=== PATIENT | male | born 1940 | race Caucasian/White ===

== ENCOUNTER 2016-07-15 10:32 | Outpatient (CLI) ==
[2016-03-13 14:48] VITALS: BMI 26.4
--- NOTE | 2016-07-15 11:27 | DI ---
EXAM: Chest two views HISTORY: Cough COMPARISON: 12/26/2015 TECHNIQUE: Two views of the chest were performed FINDINGS: The lungs are clear. There is no pleural effusion or pneumothorax. The heart is normal in size. The mediastinal contour is normal, noting atherosclerosis. There are median sternotomy wi res. There is lumbar spinal fusion hardware that is incompletely imaged.. There are no acute abnor malities of the bones. There are surgical clips right upper quadrant IMPRESSION: No acute cardiopulmonary process.
== END 2016-07-15 10:33 | disposition home or self-care (01) ==
LOC: RAD 10:32
PROVIDERS: ATTEND Internal Medicine
DX: R05 Cough (principal)

== ENCOUNTER 2016-07-20 08:09 | Day surgery (SDC) ==
[2016-03-13 14:48] VITALS: BMI 26.4
[2016-07-20 08:43] VITALS: TEMP 97.4
[2016-07-20] MEDS ORDERED: DIPRIVAN 20 ML VIAL IVP ONE (10:20)
[2016-07-20 12:11] VITALS: BP 162/68
--- NOTE | 2016-07-21 09:43 | OP ---
INDICATIONS FOR PROCEDURE: 76-year-old gentleman presents for evaluation of intermittent dysphagia. He also has an iron deficiency anemia. He is scheduled for endoscopy and colonoscopy. MEDICATIONS: SEE ANESTHESIA NOTES. PROCEDURE: 1. ENDOSCOPY, SLOVAK DILATATION. 2. COLONOSCOPY. REPORT: The risks, benefits, alternatives and limitations were discussed in detail with the patient. Informed consent was obtained. After adequate sedation was achieved, the video endoscope was introduced in the posterior pharynx and esophagus under direct vision. I easily advanced down to the second portion of the duodenum. I then slowly withdrew. The duodenal mucosa appeared unremarkable as did the duodenal bulb. In the second portion of the duodenum I did identify a small AVM. The antrum and body were relatively unremarkable. The scope was retroflexed to look at the cardia and fundus which was unremarkable. The scope was anteflexed and withdrawn back through the esophagus. The GE junction had mild scarring causing mild luminal narrowing. This was consistent with his benign esophageal stricture. The esophagus was otherwise unremarkable. I advanced the scope back down the gastric lumen. I placed a guidewire and withdrew the scope. Over the guidewire, I easily advanced a 54 [place] dilator. The scopes were changed. I then digitalized his colostomy. There was no stricturing. The pediatric colonoscope was introduced into the sigmoid colostomy opening and was advanced under direct visual guidance to the ileocolonic anastomosis. The small bowel appeared unremarkable. The anastomosis appeared unremarkable in this area. I then slowly withdrew the scope in a circumferential manner examining the mucosa quite carefully. I looked on the proximal and distal side of folds and flexures as best as possible. The colonic mucosa was unremarkable its entire length other than one diverticulum in the distal left colon. No other abnormalities were noted. The prep was good. The withdrawal time was 4 minutes and 13 seconds. The patient tolerated the procedure well with stable vital signs and pulse oximetry throughout. IMPRESSION: 1. DISTAL ESOPHAGEAL STRICTURE CAUSING MILD LUMINAL NARROWING SUCCESSFULLY DILATED ABOVE. 2. SMALL DUODENAL AVM. 3. SINGLE COLONIC DIVERTICULUM OTHERWISE UNREMARKABLE COLONOSCOPY EXAM. 4. I SUSPECT AVM DISEASE AN UNDERLYING CONTRIBUTING FACTOR TO HIS IRON DEFICIENCY ANEMIA. RECOMMENDATIONS: 1. Iron supplementation. 2. Reflux precautions. 3. Future colonoscopy examinations on an as needed only basis. 4. Will see him back in the office as needed. CC: DR. LISSY SANTA
== END 2016-07-20 12:20 | disposition home or self-care (01) ==
LOC: SURG 08:09
PROVIDERS: ATTEND Internal Medicine Gastroenterology
DX: R13.19 Other dysphagia (principal); D50.9 Iron deficiency anemia, unspecified; Q27.33 Arteriovenous malformation of digestive system vessel; K22.2 Esophageal obstruction; K57.30 Diverticulosis of large intestine without perforation or abscess without bleeding; Z93.3 Colostomy status; E11.9 Type 2 diabetes mellitus without complications

== ENCOUNTER 2016-08-24 06:28 | Day surgery (SDC) ==
[2016-03-13 14:48] VITALS: BMI 26.4
[2016-08-24] MEDS ORDERED: LIDOCAINE 1% 20 ML MDV ONE (07:21)
[2016-08-24] MEDS ORDERED: LIDOCAINE 1% 20 ML MDV ID ONE (07:21)
[2016-08-24 07:32] VITALS: BP 117/65; TEMP 98.5
--- NOTE | 2016-08-24 14:47 | OP ---
INDICATIONS FOR PROCEDURE: 76-year-old gentleman presents for flex-sig examination of his rectal pouch. He has a history of iron deficiency anemia and appendiceal carcinoma. MEDICATIONS: SEE ANESTHESIA NOTES. PROCEDURE: Flex sig examination of rectal pouch. REPORT: The risks, benefits, alternatives and limitations were discussed in detail with the patient. Informed consent was obtained. After adequate sedation was achieved, a digital rectal exam revealed good tone, no masses. The colonoscope was introduced into the rectum. There is some mucus present. This was suctioned off. He had a small rectal pouch and anastomosis was at the rectosigmoid junction. It was a blind pouch. The scope was advanced to this anastomosis and slowly withdrawn. 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 No other abnormalities were noted. The patient tolerated the procedure well with stable vital signs and pulse oximetry throughout. No pictures were obtained. IMPRESSION: 1. Mild diversion colitis. RECOMMENDATIONS: 1. He is asymptomatic from diversion colitis standpoint. I recommend no further intervention at this time. 2. Will see him back in the office as needed. CC: DR. GILDARDO SANTA
== END 2016-08-24 08:27 | disposition home or self-care (01) ==
LOC: SURG 06:28
PROVIDERS: ATTEND Internal Medicine Gastroenterology
DX: Z08 Encounter for follow-up examination after completed treatment for malignant neoplasm (principal); Z85.038 Personal history of other malignant neoplasm of large intestine; K52.89 Other specified noninfective gastroenteritis and colitis; D50.9 Iron deficiency anemia, unspecified; Z98.0 Intestinal bypass and anastomosis status; E11.9 Type 2 diabetes mellitus without complications
CPT/HCPCS: 00810; G0104

== ENCOUNTER 2016-08-25 13:00 | Outpatient (RCR) ==
[2016-03-13 14:48] VITALS: BMI 26.4
--- NOTE | 2016-08-05 11:28 | RS.OPPTEV2 ---
Date of Note: 08/05/16 Visit #: 1 Date of Evaluation: 08/05/16 Payer Source: MEDICARE Surgery Performed?: No Treatment Diagnosis: Low back pain History of Condition/Mechanism of Injury:: Patient reports having two lumbar surgery procedures within a four day period. The last surgery was on 07/03/15. His surgeries are about a year old and he saw the surgeon again last wk when he was referred to PT for strengthening. All restrictions were lifted and he was told he can do anything he wants. He states he can tell his legs are weak and his balance is off a little. Prior Level of Function.....Patient was independent with: ADL's, Self Care, Caregiving, Ambulation/Mobility, Community Integration/Access *Precautions: None Medical History Medical History: Hypertension, Diabetes, Cancer Medical History Comments:: Patient just had L2-5 Laminectomy 03/10/16. Has history of previous back surgeries, the most recent in 2015. Colostomy Jun 2015, CABG 1996, Bilateral TKA: right 2011, left 2003. Surgical History: Lumbar Spine Surgical History Comments:: Pt has had his 3rd back surgery. 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 Smoking Status: Former smoker Hx Home Medications: Percocet PRN Pain Assessment - Pain Description Pain Location: Right low back, right thigh and right toes intermittently Pain Description: Sharp Pain Description: Constant but minimal Current Pain Intensity: not rated Worst Pain Intensity: 8/10 Functional Outcome Measure Oswestry LBP: 28 (56%) - G Codes & Severity Modifier G Codes & Modifier: Mobility, Moving & Walking Around: Eval - CK. Goal - CJ Source of G Code score: Oswestry LBP Scale Observation - Observation Inspection: Right lateral lean minimally. Posture: Rounded Shoulders, Decreased Lumbar Lordosis Gait - Gait Pattern General Gait Pattern Observation: Decrease Stride Lngth (R), Decrease Stride Lngth (L) Gait Comments: Patient has very rigid posture with absence of trunk rotation. General Range of Motion: Right hamstring -24 degrees. Left hamstring -30 degrees - ROM Lumbar Flexion: Hand reach to patellae Sidebending to Left: Reach to Mid-thigh Sidebending to Right: Reach to Mid-thigh - Strength Trunk Rotation: 4 Good - Left Hip Strength Left Hip Flexion: 4- Good- Left Hip Extension: 4- Good- - Right Hip Strength Right Hip Flexion: 3+ Fair+ Right Hip Extension: 4- Good- Palpation Palpation Findings: Trigger Point (Right lumbar paraspinals ) Sensation - Sensation Sensation Description: Tingling (Right toes intermittenly) Interventions - Exercise/Activities/Manual Therapy Exercises/Activities: na Manual Therapy: NA HOME EXERCISE PROGRAM: -- - Charges Total Direct Minutes: 45 Total Treatment Time: 45 Procedures billed for this date of service:: PT Eval (Medium) Assessment Assessment: Constant pain still present, decreased lumbar ROM and hamstring tightness, core and BLE weakness, minimal standing balance and gait deficits. Patient Education: Education of diagnosis, Body/Joint mechanics, Activity Modification, Education of Plan of Care Rehab Potential: Good Short Term Goals Goal #1: Pt independent and compliant with basic HEP. Goal to be met by: 08/27/16 Goal #2: Bilateral hamstring length -20 degrees bilaterally. Goal to be met by: 08/27/16 Goal #3: Bilateral hip flexion strength 4+/5. Goal to be met by: 08/27/16 Goal #4: Trunk strength good- to increase stability. Goal to be met by: 08/27/16 Jail Goals Goal #1: Pt knows HEP and understands the need to continue exercises at home. Goal to be met by: 09/17/16 Goal #2: Score on Oswestry LBP scale improved to 15. Goal to be met by: 09/17/16 Goal #3: Intermittent LBP. Goal to be met by: 09/17/16 Goal #4: Pt able to perform all ADL's and recreational activities without difficulty Goal to be met by: 09/17/16 Plan - Treatment to be Provided Procedures: Therapeutic Exercises, Therapeutic Activity, Gait Training, Neuromuscular Rehab, Manual Therapy, Patient Education Modalities: Electrical Stimulation, Class IV Laser, Cryotherapy, Hot Packs, No Modalities - Treatment Plan Frequency: 3 X week Duration: 6 weeks ORDER # VISITS AND/OR THROUGH DATE: 09/17/2016 - Treatment Code (1) Low back pain Qualifiers: Chronicity: chronic Back pain laterality: right Sciatica presence: with sciatica Sciatica laterality: sciatica of right side Qualified Description: Chronic right-sided low back pain with right-sided sciatica Qualifier Code(s): (M54.41) Lumbago with sciatica, right side, (G89.29) Other chronic pain (2) Muscle weakness (generalized) Comments: M62.81
--- NOTE | 2016-08-09 15:49 | RS.OPPTDN ---
Subjective Date of Note: 08/09/16 Visit #: 2 Date of Evaluation: 08/05/16 Payer Source: MEDICARE Treatment Diagnosis: Low back pain Current Subjective/complaints:: Patient reports quite a bit of soreness today from the weather. States he wants to be able to get out on the golf course and play golf. He has walked on the cart path a little. *Precautions: None Pain Assessment - Pain Description Pain Location: Right low back, right thigh and right toes intermittently Pain Description: Sharp Pain Description: Constant but minimal Current Pain Intensity: not rated, soreness - Heat/Cryotherapy Treatment: Hot Pack (X 10 mins prior to stretching.) Interventions - Exercise/Activities/Manual Therapy Exercises/Activities: Patient assisted with stretching to bilateral HS, SKTC, Piriformis, lower trunk rotation. Both HS are very tight, especially the left. Demonstrated how to use a towel or sheet behind the knee to perform HS stretch. Patient performed isometric trunk rotation and hip abduction. Total minutes of Exercise: X 27 mins Manual Therapy: NA HOME EXERCISE PROGRAM: -- - Objective Findings Observations,measurements,etc.: Patient ambulates with slight forward posture at the hips. - Charges Total Direct Minutes: 27 mins Total Treatment Time: 37 mins Procedures billed for this date of service:: hp, EX2 Assessment: Patient demonstrates marked tightness of the hamstrings. He demonstrates the need for general stretching of the LE's and trunk at this time and then progression of trunk and LE strengthening. Patient Education: Education of diagnosis, Body/Joint mechanics, Education of Plan of Care Short Term Goals Goal #1: Pt independent and compliant with basic HEP. Goal to be met by: 08/27/16 Goal #2: Bilateral hamstring length -20 degrees bilaterally. Goal to be met by: 08/27/16 Goal #3: Bilateral hip flexion strength 4+/5. Goal to be met by: 08/27/16 Goal #4: Trunk strength good- to increase stability. Goal to be met by: 08/27/16 Telecommunication Equipment Repairer Goals Goal #1: Pt knows HEP and understands the need to continue exercises at home. Goal to be met by: 09/17/16 Goal #2: Score on Oswestry LBP scale improved to 15. Goal to be met by: 09/17/16 Goal #3: Intermittent LBP. Goal to be met by: 09/17/16 Goal #4: Pt able to perform all ADL's and recreational activities without difficulty Goal to be met by: 09/17/16 Plan PLAN OF CARE EXPIRES ON:: 09/17/16 ORDER # VISITS AND/OR THROUGH DATE: 09/17/2016 PLAN: Progress Exercises
--- NOTE | 2016-08-11 13:58 | RS.OPPTDN ---
Subjective Date of Note: 08/11/16 Visit #: 3 Date of Evaluation: 08/05/16 Payer Source: MEDICARE Treatment Diagnosis: Low back pain Current Subjective/complaints:: Patient reports sorenes from stretches,but in a good way,referring to walking better,more upright. *Precautions: None Pain Assessment - Pain Description Pain Location: Right low back, right thigh and right toes intermittently Pain Description: Sharp, Dull, Aching Pain Description: Constant but minimal Current Pain Intensity: not rated, soreness - Heat/Cryotherapy Treatment: Hot Pack (20 mins. prior to exercises) Interventions - Exercise/Activities/Manual Therapy Exercises/Activities: Patient assisted with stretching to bilateral HS, SKTC, Piriformis, lower trunk rotation. Both HS are very tight, especially the left. Reminded patient to use a towel or sheet behind the knee to perform HS stretch. Patient performed isometric trunk rotation and hip abduction. Total minutes of Exercise: 25 Manual Therapy: NA Total minutes of Manual Therapy: 0 HOME EXERCISE PROGRAM: SKTC,isometric hip abd /add,90/90 hamstring stretches, LTR in PAIN FREE ROM - Charges Total Direct Minutes: 25 Total Treatment Time: 45 Procedures billed for this date of service:: hp,ex 2 Assessment: Patient has moderate hamstring tightness ,R greater then L ,but tolerates stretches well.He is attentive to HEP recommendations.He describes the back pain as dull today,as opposed to sharp. Patient demonstrates compliance with HEP?: Yes Short Term Goals Goal #1: Pt independent and compliant with basic HEP. Goal to be met by: 08/27/16 Progress towards Goal:: Progressing Goal #2: Bilateral hamstring length -20 degrees bilaterally. Goal to be met by: 08/27/16 Progress towards Goal:: Progressing Goal #3: Bilateral hip flexion strength 4+/5. Goal to be met by: 08/27/16 Goal #4: Trunk strength good- to increase stability. Goal to be met by: 08/27/16 [place] Resistance Goals Goal #1: Pt knows HEP and understands the need to continue exercises at home. Goal to be met by: 09/17/16 Progress towards goal: Progressing Goal #2: Score on Oswestry LBP scale improved to 15. Goal to be met by: 09/17/16 Goal #3: Intermittent LBP. Goal to be met by: 09/17/16 Goal #4: Pt able to perform all ADL's and recreational activities without difficulty Goal to be met by: 09/17/16 Plan PLAN OF CARE EXPIRES ON:: 09/17/16 ORDER # VISITS AND/OR THROUGH DATE: 09/17/2016 PLAN: Continue Plan of Care
--- NOTE | 2016-08-13 14:02 | RS.OPPTDN ---
Subjective Date of Note: 08/13/16 Visit #: 4 Date of Evaluation: 08/05/16 Payer Source: MEDICARE Treatment Diagnosis: Low back pain Current Subjective/complaints:: Patient reports increased soreness in the R hip and low back today. *Precautions: None Pain Assessment - Pain Description Pain Location: Right low back, right thigh and right toes intermittently Pain Description: Sharp, Dull, Aching Pain Description: Constant but minimal Current Pain Intensity: not rated, soreness - Heat/Cryotherapy Treatment: Hot Pack (20 mins. prior to exercises) Interventions - Exercise/Activities/Manual Therapy Exercises/Activities: 20 mins. stretching to bilateral HS, SKTC, Piriformis, lower trunk rotation. Total minutes of Exercise: 20 Manual Therapy: NA Total minutes of Manual Therapy: 0 HOME EXERCISE PROGRAM: SKTC,isometric hip abd /add,90/90 hamstring stretches, LTR in PAIN FREE ROM - Charges Total Direct Minutes: 20 Total Treatment Time: 40 Procedures billed for this date of service:: hp,ex 1 Assessment: Patient responds better today to bilateral hamstrings stretches with less pain.He tolerates the lumbar paraspinals stretch wothout pain increasing .He does have improved trunk extension with ambulation. Patient Education: Education of diagnosis, Body/Joint mechanics, Home Exercise Program, Home Safety, Activity Modification, Education of Plan of Care Patient demonstrates compliance with HEP?: Yes Short Term Goals Goal #1: Pt independent and compliant with basic HEP. Goal to be met by: 08/27/16 Progress towards Goal:: Progressing Goal #2: Bilateral hamstring length -20 degrees bilaterally. Goal to be met by: 08/27/16 Progress towards Goal:: Progressing Goal #3: Bilateral hip flexion strength 4+/5. Goal to be met by: 08/27/16 Goal #4: Trunk strength good- to increase stability. Goal to be met by: 08/27/16 Jail Goals Goal #1: Pt knows HEP and understands the need to continue exercises at home. Goal to be met by: 09/17/16 Progress towards goal: Progressing Goal #2: Score on Oswestry LBP scale improved to 15. Goal to be met by: 09/17/16 Goal #3: Intermittent LBP. Goal to be met by: 09/17/16 Progress towards goal: Progressing Goal #4: Pt able to perform all ADL's and recreational activities without difficulty Goal to be met by: 09/17/16 Plan PLAN OF CARE EXPIRES ON:: 09/17/16 ORDER # VISITS AND/OR THROUGH DATE: 09/17/2016 PLAN: Continue Plan of Care
--- NOTE | 2016-08-16 14:02 | RS.OPPTDN ---
Subjective Date of Note: 08/16/16 Visit #: 5 Date of Evaluation: 08/05/16 Payer Source: MEDICARE Treatment Diagnosis: Low back pain Current Subjective/complaints:: Patient reports increased soreness after the last couple of PT sessions,discussed focusing on strengthening,less stretching to sees if it helps decrease his pain. *Precautions: None Pain Assessment - Pain Description Pain Location: Right low back, right thigh and right toes intermittently Pain Description: Sharp, Dull, Aching Current Pain Intensity: not rated Worst Pain Intensity: 8/10 over the weekend - Heat/Cryotherapy Treatment: Hot Pack (20 mins. prior to exercises) Interventions - Exercise/Activities/Manual Therapy Exercises/Activities: 20 mins. total on leg press,08/11 @ 45 #,08/06 calf-raises @ 15 #.HEP review. Total minutes of Exercise: 20 Manual Therapy: NA Total minutes of Manual Therapy: 0 HOME EXERCISE PROGRAM: SKTC,isometric hip abd /add,90/90 hamstring stretches, LTR in PAIN FREE ROM - Charges Total Direct Minutes: 20 Total Treatment Time: 40 Procedures billed for this date of service:: hp,ex 1 Assessment: Tolerates resistive exercises well today ,no report of LBP.He understands to do all exercises in pain free ROM. Patient Education: Education of diagnosis, Body/Joint mechanics, Home Exercise Program, Home Safety, Activity Modification, Education of Plan of Care Patient demonstrates compliance with HEP?: Yes Short Term Goals Goal #1: Pt independent and compliant with basic HEP. Goal to be met by: 08/27/16 Progress towards Goal:: Progressing Goal #2: Bilateral hamstring length -20 degrees bilaterally. Goal to be met by: 08/27/16 Progress towards Goal:: Progressing Goal #3: Bilateral hip flexion strength 4+/5. Goal to be met by: 08/27/16 Progress towards Goal:: Progressing Goal #4: Trunk strength good- to increase stability. Goal to be met by: 08/27/16 Progress towards Goal:: Progressing Residential Goals Goal #1: Pt knows HEP and understands the need to continue exercises at home. Goal to be met by: 09/17/16 Progress towards goal: Progressing Goal #2: Score on Oswestry LBP scale improved to 15. Goal to be met by: 09/17/16 Goal #3: Intermittent LBP. Goal to be met by: 09/17/16 Progress towards goal: Progressing Goal #4: Pt able to perform all ADL's and recreational activities without difficulty Goal to be met by: 09/17/16 Plan PLAN OF CARE EXPIRES ON:: 09/17/16 ORDER # VISITS AND/OR THROUGH DATE: 09/17/2016 PLAN: Continue Plan of Care
--- NOTE | 2016-08-18 11:04 | RS.OPPTDN ---
Subjective Date of Note: 08/18/16 Visit #: 6 Date of Evaluation: 08/05/16 Payer Source: MEDICARE Treatment Diagnosis: Low back pain Current Subjective/complaints:: Reports increased R groin pain and low back pain today. *Precautions: None Pain Assessment - Pain Description Pain Location: Right low back, right thigh and right toes intermittently Pain Description: Sharp, Dull, Aching Current Pain Intensity: 8/10 - Heat/Cryotherapy Treatment: Hot Pack (20 mins. prior to manual therapy.) Interventions - Exercise/Activities/Manual Therapy Exercises/Activities: Withheld today. Total minutes of Exercise: 0 Manual Therapy: 30 mins. deep tissue massage to lumbar paraspinals with patient in L sidelying position.Trigger point pressure application @ L3-L4 level intermittently during session. Total minutes of Manual Therapy: 30 HOME EXERCISE PROGRAM: SKTC,isometric hip abd /add,90/90 hamstring stretches, LTR in PAIN FREE ROM - Charges Total Direct Minutes: 30 Total Treatment Time: 50 Procedures billed for this date of service:: hp,manual therapy 2 Assessment: Patient has increased tendeness today on the R aspect of L3-L4 transverse proces.He does report relief after session today.He knows to do HEP in PAIN FREE ROM as tolerated,avoid excessive trunk rotation .He exits clinic with less antalgic gait. Patient Education: Education of diagnosis, Body/Joint mechanics, Home Exercise Program, Home Safety, Activity Modification, Education of Plan of Care Patient demonstrates compliance with HEP?: Yes Short Term Goals Goal #1: Pt independent and compliant with basic HEP. Goal to be met by: 08/27/16 Progress towards Goal:: Progressing Goal #2: Bilateral hamstring length -20 degrees bilaterally. Goal to be met by: 08/27/16 Progress towards Goal:: No Change Goal #3: Bilateral hip flexion strength 4+/5. Goal to be met by: 08/27/16 Progress towards Goal:: Progressing Goal #4: Trunk strength good- to increase stability. Goal to be met by: 08/27/16 Progress towards Goal:: Progressing Sidewalk Repairer Goals Goal #1: Pt knows HEP and understands the need to continue exercises at home. Goal to be met by: 09/17/16 Progress towards goal: Progressing Goal #2: Score on Oswestry LBP scale improved to 15. Goal to be met by: 09/17/16 Goal #3: Intermittent LBP. Goal to be met by: 09/17/16 (elevated today upon arrival) Progress towards goal: Regressing Goal #4: Pt able to perform all ADL's and recreational activities without difficulty Goal to be met by: 09/17/16 Plan PLAN OF CARE EXPIRES ON:: 09/17/16 ORDER # VISITS AND/OR THROUGH DATE: 09/17/2016 PLAN: Continue Plan of Care
--- NOTE | 2016-08-20 14:15 | RS.OPPTDN ---
Subjective Date of Note: 08/20/16 Visit #: 7 Date of Evaluation: 08/05/16 Payer Source: MEDICARE Treatment Diagnosis: Low back pain Current Subjective/complaints:: Patient reports he feels poping in his back, feels ,"like somethign is loose at times".He plans to return to Dr. Goins for possible if he agrees. *Precautions: None Pain Assessment - Pain Description Pain Location: Right low back, right thigh and right toes intermittently Pain Description: Sharp, Dull, Aching Current Pain Intensity: 8/10 - Heat/Cryotherapy Treatment: Hot Pack (20 mins. to lumbar prior to manual therapy.) Interventions - Exercise/Activities/Manual Therapy Exercises/Activities: Withheld today. Total minutes of Exercise: 0 Manual Therapy: 30 mins. deep tissue massage to lumbar paraspinals with patient in L sidelying position.Trigger point pressure application @ L3-L4 level intermittently during session. Total minutes of Manual Therapy: 30 HOME EXERCISE PROGRAM: SKTC,isometric hip abd /add,90/90 hamstring stretches, LTR in PAIN FREE ROM - Charges Total Direct Minutes: 30 Total Treatment Time: 50 Procedures billed for this date of service:: hp,manual therapy Assessment: Patient is tender to palpate the transverse processes at L3 - L4 levels today.He does have less antalgic gait after PT session.He knows the HEP well,but reminded to do them in pain free ROM. Patient Education: Education of diagnosis, Body/Joint mechanics, Home Exercise Program, Home Safety, Activity Modification, Education of Plan of Care Patient demonstrates compliance with HEP?: Yes Short Term Goals Goal #1: Pt independent and compliant with basic HEP. Goal to be met by: 08/27/16 Progress towards Goal:: Progressing Goal #2: Bilateral hamstring length -20 degrees bilaterally. Goal to be met by: 08/27/16 Progress towards Goal:: No Change Goal #3: Bilateral hip flexion strength 4+/5. Goal to be met by: 08/27/16 (N/A) Goal #4: Trunk strength good- to increase stability. Goal to be met by: 08/27/16 Progress towards Goal:: Progressing Zigzag Appliquer Goals Goal #1: Pt knows HEP and understands the need to continue exercises at home. Goal to be met by: 09/17/16 Progress towards goal: Progressing Goal #2: Score on Oswestry LBP scale improved to 15. Goal to be met by: 09/17/16 Goal #3: Intermittent LBP. Goal to be met by: 09/17/16 (elevated again today upon arrival) Progress towards goal: No Change Goal #4: Pt able to perform all ADL's and recreational activities without difficulty Goal to be met by: 09/17/16 Plan PLAN OF CARE EXPIRES ON:: 09/17/16 ORDER # VISITS AND/OR THROUGH DATE: 09/17/2016 PLAN: Continue Plan of Care
--- NOTE | 2016-08-23 14:03 | RS.OPPTDN ---
Subjective Date of Note: 08/23/16 Visit #: 8 Date of Evaluation: 08/05/16 Payer Source: MEDICARE Treatment Diagnosis: Low back pain Current Subjective/complaints:: Reports relief after last session until the next day.He is hurting alot today,has antalgic gait .He plans to see Dr. Goins or the PA tomorrow for possible x-ray on his back. *Precautions: None Pain Assessment - Pain Description Pain Location: Right low back, right thigh and right toes intermittently Pain Description: Sharp, Dull, Aching Current Pain Intensity: 8/10 - Heat/Cryotherapy Treatment: Hot Pack (20 mins. to lumbar prior to manual therapy.) Interventions - Exercise/Activities/Manual Therapy Exercises/Activities: Withheld today. Total minutes of Exercise: 0 Manual Therapy: 20 mins. deep tissue massage to lumbar paraspinals with patient in L sidelying position.Ended sesion early due to patient needing to go to bathroom. HOME EXERCISE PROGRAM: SKTC,isometric hip abd /add,90/90 hamstring stretches, LTR in PAIN FREE ROM - Charges Total Direct Minutes: 20 Total Treatment Time: 40 Procedures billed for this date of service:: hp,manual 1 Assessment: Patient reports significant relief in side-lying today during the manual therapy.He continues to report feeling like there is something loose in his back,but plans to mention this at tomorrow's visit. Patient Education: Education of diagnosis, Body/Joint mechanics, Home Exercise Program, Home Safety, Activity Modification, Education of Plan of Care Patient demonstrates compliance with HEP?: Yes Short Term Goals Goal #1: Pt independent and compliant with basic HEP. Goal to be met by: 08/27/16 Progress towards Goal:: Progressing Goal #2: Bilateral hamstring length -20 degrees bilaterally. Goal to be met by: 08/27/16 Progress towards Goal:: No Change Goal #3: Bilateral hip flexion strength 4+/5. Goal to be met by: 08/27/16 (N/A) Goal #4: Trunk strength good- to increase stability. Goal to be met by: 08/27/16 Progress towards Goal:: Progressing [facility] Goals Goal #1: Pt knows HEP and understands the need to continue exercises at home. Goal to be met by: 09/17/16 Progress towards goal: Progressing Goal #2: Score on Oswestry LBP scale improved to 15. Goal to be met by: 09/17/16 Goal #3: Intermittent LBP. Goal to be met by: 09/17/16 (elevated again today upon arrival) Progress towards goal: No Change Goal #4: Pt able to perform all ADL's and recreational activities without difficulty Goal to be met by: 09/17/16 Progress towards goal: No Change Plan PLAN OF CARE EXPIRES ON:: 09/17/16 ORDER # VISITS AND/OR THROUGH DATE: 09/17/2016 PLAN: Continue Plan of Care
--- NOTE | 2016-08-25 16:11 | RS.OPPTDN ---
Subjective Date of Note: 08/25/16 Visit #: 9 Date of Evaluation: 08/05/16 Payer Source: MEDICARE Treatment Diagnosis: Low back pain Current Subjective/complaints:: Patient discussed D/C plan today due to minimal change and slow progress.He plans to return to Dr. Goins for follow-up.He continues to feel like something ,"is loose " in his back. *Precautions: None Pain Assessment - Pain Description Pain Location: Right low back, right thigh and right toes intermittently Pain Description: Sharp, Dull, Aching Current Pain Intensity: 8/10 - Heat/Cryotherapy Treatment: Hot Pack (20 mins. prior to manual therapy) Interventions - Exercise/Activities/Manual Therapy Exercises/Activities: NA Total minutes of Exercise: 0 Manual Therapy: 25 mins. deep tissue massage to lumbar paraspinals with patient in L sidelying position. Total minutes of Manual Therapy: 25 HOME EXERCISE PROGRAM: SKTC,isometric hip abd /add,90/90 hamstring stretches, LTR in PAIN FREE ROM - Charges Total Direct Minutes: 25 Total Treatment Time: 45 Procedures billed for this date of service:: hp,manual 2 Assessment: Reports temporary relief only with minimal ,slow progress in regards to the LBP.He agrees with D/C plan today.He has good understanding of HEP ,as he can tolerate. Patient Education: Education of diagnosis, Body/Joint mechanics, Home Exercise Program, Home Safety, Activity Modification, Education of Plan of Care Patient demonstrates compliance with HEP?: Yes Short Term Goals Goal #1: Pt independent and compliant with basic HEP. Goal to be met by: 08/27/16 Progress towards Goal:: Partially Met Goal #2: Bilateral hamstring length -20 degrees bilaterally. Goal to be met by: 08/27/16 Progress towards Goal:: No Change Goal #3: Bilateral hip flexion strength 4+/5. Goal to be met by: 08/27/16 (N/A due to pain) Goal #4: Trunk strength good- to increase stability. Goal to be met by: 08/27/16 Progress towards Goal:: No Change Family Caseworker Goals Goal #1: Pt knows HEP and understands the need to continue exercises at home. Goal to be met by: 09/17/16 Progress towards goal: Met Goal #2: Score on Oswestry LBP scale improved to 15. Goal to be met by: 09/17/16 (score 25) Progress towards goal: Not Met Goal #3: Intermittent LBP. Goal to be met by: 09/17/16 (elevated again today upon arrival) Progress towards goal: No Change Goal #4: Pt able to perform all ADL's and recreational activities without difficulty Goal to be met by: 09/17/16 Progress towards goal: No Change Plan PLAN OF CARE EXPIRES ON:: 09/17/16 ORDER # VISITS AND/OR THROUGH DATE: 09/17/2016 PLAN: Plan for Discharge
--- NOTE | 2016-08-27 15:55 | RS.OPPTDC ---
Date of Discharge: 08/25/16 Date of Evaluation: 08/05/16 Number of Visits: 9 Treatment Diagnosis: Low back pain Current Complaints/Gains: Patient reports minimal progress, but very slow. He would like to stop therapy until he returns to Dr. Goins. He feels he can continue his HEP without difficulty. Functional Outcome Measure Oswestry LBP: 25 - G Codes & Severity Modifier G Codes & Modifier: Mobility goal CJ. Mobility D/C CK Source of G Code score: Oswestry LBP scale Observation - Observation Posture: Forward Head, Rounded Shoulders Comments: Ambulates and stands with flexed forward guarded posture. Interventions - Exercise/Activities/Manual Therapy Exercises/Activities: NA Manual Therapy: Na HOME EXERCISE PROGRAM: SKTC,isometric hip abd /add,90/90 hamstring stretches, LTR in PAIN FREE ROM - Charges Total Direct Minutes: Na Total Treatment Time: NA Procedures billed for this date of service:: NA Assessment Assessment: Patient demonstrates difficulty tolerating stretching or progression of stability exercises. He would like to hold therapy until he returns to Dr. Goins for a follow up appointment. Short Term Goals Goal #1: Pt independent and compliant with basic HEP. Goal to be met by: 08/27/16 Progress towards Goal:: Partially Met Goal #2: Bilateral hamstring length -20 degrees bilaterally. Goal to be met by: 08/27/16 Progress towards Goal:: Not Met Goal #3: Bilateral hip flexion strength 4+/5. Goal to be met by: 08/27/16 (N/A due to pain) Progress towards Goal:: Not Met Goal #4: Trunk strength good- to increase stability. Goal to be met by: 08/27/16 Progress towards Goal:: Not Met [facility] Goals Goal #1: Pt knows HEP and understands the need to continue exercises at home. Goal to be met by: 09/17/16 Progress towards goal: Met Goal #2: Score on Oswestry LBP scale improved to 15. Goal to be met by: 09/17/16 (score 25) Progress towards goal: Not Met Goal #3: Intermittent LBP. Goal to be met by: 09/17/16 (elevated again today upon arrival) Progress towards goal: Not Met Goal #4: Pt able to perform all ADL's and recreational activities without difficulty Goal to be met by: 04/21/17 Progress towards goal: Not Met Plan Reason for Discharge:: Lack of Progress
== END 2016-08-27 ==
PROVIDERS: ATTEND Orthopaedic Surgery Orthopaedic Surgery of the Spine
DX: M54.5 Low back pain (principal)

== ENCOUNTER 2016-09-24 14:22 | Outpatient (CLI) ==
[2016-03-13 14:48] VITALS: BMI 26.4
[2016-09-24 14:49] LABS: BILIRUBIN,URINE Negative (NEGATIVE); KETONES,URINE Negative (NEGATIVE); LEUKOCYTE ESTERASE ,URINE 1+ (NEGATIVE); NITRITE,URINE Positive (NEGATIVE); PROTEIN,URINE 1+ (NEGATIVE); URINE, BLOOD Trace-intact (NEGATIVE)
[2016-09-24 14:54] LABS: ADD URINE MICROSCOPIC YES
[2016-09-24 14:58] LABS: BACTERIA,URINE 3+ (NOT PRESENT)
== END 2016-09-24 14:23 | disposition home or self-care (01) ==
LOC: LAB 14:22
PROVIDERS: ATTEND Internal Medicine
DX: N39.0 Urinary tract infection, site not specified (principal)
CPT/HCPCS: 81001; 87086; 87186

== ENCOUNTER 2016-10-07 12:43 | Outpatient (CLI) ==
[2016-03-13 14:48] VITALS: BMI 26.4
--- NOTE | 2016-10-07 13:33 | CT ---
EXAM: CT LUMBAR SPINE HISTORY: Lower back pain TECHNIQUE: CT lumbar spine without contrast. 3-mm axial sections. Coronal and sagittal reformatio ns. COMPARISON: 01/14/2016 FINDINGS: Bones appear demineralized. Again noted are extensive postop changes of the spine extending from L2 -S1. Hardware appears stable. There is a left lateral stabilization from L2 through L4. The stabi lized levels have disc spacers and there are selective laminectomy changes. No acute fracture or sp ondylolisthesis. No scoliosis. Sacroiliac joints are within normal limits. Especially the L5/S1 endplates are slightly sclerotic and also irregular, these more noticeable than on prior study. This is likely related to increasing breach of the end plate by the spacer althoug h an infectious etiology is not excluded by this exam. There is no high-grade central canal stenosi s. No paraspinal fluid collection is seen. IMPRESSION: 1. Stable hardware extending from L2-S1. There are intervening disc spacers and selective laminecto my. 2. Greater endplate irregularity at L5/S1 which is most likely related to partial breech of the end plates by the disc spacer. Less likely an infectious process. These images can be reviewed by the patient's surgeon for appropriateness. Consider patient history and physical examination. MRI is av ailable if indicated.
== END 2016-10-07 12:44 | disposition home or self-care (01) ==
LOC: RAD 12:43
PROVIDERS: ATTEND Orthopaedic Surgery Orthopaedic Surgery of the Spine
DX: M54.5 Low back pain (principal)

== ENCOUNTER 2016-10-26 11:24 | Outpatient (CLI) ==
[2016-03-13 14:48] VITALS: BMI 26.4
[2016-10-26 11:48] LABS: BILIRUBIN,URINE Negative (NEGATIVE); KETONES,URINE Negative (NEGATIVE); LEUKOCYTE ESTERASE ,URINE 3+ (NEGATIVE); NITRITE,URINE Negative (NEGATIVE); PROTEIN,URINE 1+ (NEGATIVE); URINE, BLOOD Trace-intact (NEGATIVE)
[2016-10-26 11:49] LABS: ADD URINE MICROSCOPIC YES
[2016-10-26 11:54] LABS: BACTERIA,URINE 1+ (NOT PRESENT)
== END 2016-10-26 11:25 | disposition home or self-care (01) ==
LOC: LAB 11:24
PROVIDERS: ATTEND Emergency Medicine
DX: N39.0 Urinary tract infection, site not specified (principal)
CPT/HCPCS: 81001; 87086; 87186

== ENCOUNTER 2016-11-29 11:06 | Outpatient (CLI) ==
[2016-03-13 14:48] VITALS: BMI 26.4
--- NOTE | 2016-11-29 12:09 | US ---
EXAM: Bilateral lower extremity venous Doppler History: Bilateral leg pain and swelling. Technique: Multiple sonographic images through the bilateral lower extremities were obtained. [place] r duplex Doppler was used to interrogate vascular flow. Findings: The bilateral common femoral, greater saphenous, profunda, superficial femoral, popliteal, peroneal, posterior tibial and anterior tibial veins demonstrate spontaneous flow with normal compr ession and normal augmentation. Impression: No sonographic evidence for deep venous thrombosis.
== END 2016-11-29 11:07 | disposition home or self-care (01) ==
LOC: RAD 11:06
PROVIDERS: ATTEND Internal Medicine
DX: M79.605 Pain in left leg (principal); M79.604 Pain in right leg; M79.89 Other specified soft tissue disorders

== ENCOUNTER 2016-12-08 13:01 | Outpatient (CLI) ==
[2016-03-13 14:48] VITALS: BMI 26.4
== END 2016-12-08 13:02 | disposition home or self-care (01) ==
LOC: RAD 13:01
PROVIDERS: ATTEND Orthopaedic Surgery Orthopaedic Surgery of the Spine
DX: M54.5 Low back pain (principal)

== ENCOUNTER 2017-01-08 18:43 | Outpatient (CLI) ==
[2016-03-13 14:48] VITALS: BMI 26.4
[2017-01-08 19:00] LABS: BILIRUBIN,URINE Negative (NEGATIVE); KETONES,URINE Negative (NEGATIVE); LEUKOCYTE ESTERASE ,URINE 3+ (NEGATIVE); NITRITE,URINE Negative (NEGATIVE); PROTEIN,URINE Negative (NEGATIVE); URINE, BLOOD 1+ (NEGATIVE)
[2017-01-08 19:02] LABS: ADD URINE MICROSCOPIC YES
[2017-01-08 19:05] LABS: BACTERIA,URINE 3+ (NOT PRESENT)
== END 2017-01-08 18:44 | disposition home or self-care (01) ==
LOC: LAB 18:43
PROVIDERS: ATTEND Internal Medicine
DX: R35.0 Frequency of micturition (principal)
CPT/HCPCS: 81001; 87086; 87186

== ENCOUNTER 2017-09-09 10:07 | Outpatient (CLI) | payer OTHER ==
[2017-01-26 16:45] VITALS: BMI 27.6
--- NOTE | 2017-09-09 12:41 | MRI ---
EXAM: MRI brain without and with IV contrast. DATE: 09 September 2017. HISTORY: Headaches. Unsteady gait. TECHNIQUE: Sagittal T1W pre and postcontrast, axial T2W, axial FLAIR, axial T1W pre and postcontrast , axial DWI, coronal T1W postcontrast, and coronal T2W GRE sequences of the brain were obtained using 1.2 Milli magnet. CONTRAST: Dotarem - 19 ml IV. COMPARISON: CT head 26 December 2015. FINDINGS: The lateral ventricles, third ventricle, Sylvian fissures and many cerebral sulci (especia lly frontal lobes) are enlarged due to involutional change. Some cerebellar sulci are slightly promi nent. No midline shift, mass effect or abnormal extra-axial fluid collection is apparent. No acute hemorrhage or enhancing neoplasm is identified. No abnormal contrast enhancement is identified in th e brain, meninges or dura. Small/moderate confluent rim of T2W/FLAIR hyperintensity is observed in t he white matter abutting each lateral ventricle. Small number of 2-5 mm, T2W/FLAIR bright, non-enhan cing foci are scattered in the anderson radiata and subcortical white matter bilaterally. The gutierrez - w rolanda matter differentiation is normal. Several 2-5 mm T2W/FLAIR bright, non-enhancing foci are demon strated in the felix. A 3 mm DWI bright focus in the right paramidline felix on axial image #8 and sli ghtly less intense similar focus on image #9 do not have definitive corresponding abnormalities on T2 W or FLAIR sequences. A 15 mm AP x 3.5 mm transverse x 14 mm craniocaudal T2W GRE black signal along the anterior falx cerebri corresponds with benign calcification on CT scan. No migration or diverti culation abnormality is identified. The amygdala, hippocampus, and parahippocampal gyri are similar bilaterally. The 7th/8th cranial nerve complexes, cerebellopontine angles, and visible cervical spin al cord are normal. There is no cerebellar tonsillar ectopia. The pituitary gland is normal in size and signal. Corpus callosum is normal in size and configuration. Flow voids are present in the tino or intracranial arteries and in the dural venous sinuses. No aneurysm, AVM or dural venous sinus thr ombosis is apparent. Appearance of the lens of each eye suggests prior cataract surgery. No other o rbit abnormality is identified. Right mastoid air cells are unremarkable. Small number of inferior left mastoid air cells have reticular pattern T2W bright, T1W intermediate signal and minor enhanceme nt. There is no acute sinusitis. No neck mass or lymphadenopathy is detected. No calvarial neoplas m or acute fracture is evident. IMPRESSIONS: 1. Right paramidline pontine DWI artifacts vs tiny, non-hemorrhagic recent infarcts (x2). 2. No acute hemorrhage, enhancing neoplasm or hydrocephalus. 3. 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 4. Mild cerebral and minor cerebellar atrophy. 5. Minor left mastoid air cells mucosal inflammation Critical result: Findings discussed with Dr. Dr. Askew's nurse (Merlin) at 1235 hrs, 09 September 2017.
== END 2017-09-09 10:08 | disposition home or self-care (01) ==
LOC: RAD 10:07
PROVIDERS: ATTEND Specialist
DX: R51 Headache (principal); R26.9 Unspecified abnormalities of gait and mobility

== ENCOUNTER 2017-12-06 15:57 | Inpatient (IN) | payer OTHER ==
--- NOTE | 2017-12-06 17:00 | ED.PDOC ---
General ED Provider: Dr. TAMMI OCHOA Chief Complaint: Dizziness Stated Complaint: Lt sided chest pain into his axillary region. Onset after ambulating out to his mail box this afternoon.Denies associated diaphoresis, nausea or vomiting. Has associated weakness. Time Seen by Physician: 16:30 Mode of Arrival: Wheelchair Information Source: Patient Exam Limitations: No limitations Primary Care Provider: PARRIS HERNADEZ Nursing and Triage Documentation Reviewed and Agree: Yes Does patient meet sepsis criteria?: No If yes, has appropriate treatment been initiated?: Yes System Inflammatory Response Syndrome: Not Applicable Sepsis Protocol: For patient's 13 years and over: Temp is 96.8 and below OR 101 and greater Pulse >90 BPM Resp >20/minute Acutely Altered Mental Status Are patient's symptoms suggestive of a new infection, such as: -Pneumonia -Skin, Soft Tissue -Endocarditis -UTI -Bone, Joint Infection -Implantable Device -Acute Abdominal Infection -Wound Infection -Meningitis -Blood Stream Catheter Infection -Unknown Cardiovascular Complaint Exam - Chest Pain Complaint/Exam Onset: Sudden Symptoms Are: Still present Timing: Constant Length of Chest Pain Episodes: 30 minutes Initial Severity: Moderate Current Severity: Moderate Location: Reports: Lower sternal, Left anterior, Left lateral Pain Radiates: Reports: Back, Left arm, Neck, Other (axillary region) Character: Reports: Aching, Tightness, Heaviness, Squeezing Aggravating: Reports: Exertion, Movement Alleviating: Reports: Rest, Oxygen, Upright position, Spontaneous resolution Associated Signs and Symptoms: Reports: Short of air. Denies: Diaphoresis, Nausea, Vomiting, Fever, Palpitations, Cough, Hemoptysis, Back pain, Abdominal pain, Dizziness, Calf pain, Calf swelling Related History: Denies: Similar episode Review of Systems - Review Of Systems Constitutional: Reports: No symptoms, Weakness Eyes: Reports: No symptoms Ears, Nose, Mouth, Throat: Reports: No symptoms Respiratory: Reports: No symptoms, Short of air (Exertional/relieved at rest) Cardiac: Reports: No symptoms, Chest pain GI: Reports: No symptoms : Reports: No symptoms Musculoskeletal: Reports: No symptoms Skin: Reports: No symptoms Neurological: Reports: No symptoms, Weakness, Other (dizziness-resolved) Endocrine: Reports: No symptoms Hematologic/Lymphatic: Reports: No symptoms All Other Systems: Reviewed and Negative Past Medical History - Past Medical History Previously Healthy: No Endocrine: Reports: DM 2 Cardiovascular: Reports: CAD, Hypertension Respiratory: Reports: None Hematological: Reports: None Gastrointestinal: Reports: None Genitourinary: Reports: UTI Neuro/Psych: Reports: None Musculoskeletal: Reports: None Cancer: Reports: None Other Pertinent Past Medical History: Bowel obstrcution. - Surgical History General Surgical History: Reports: CABG, Other (Bowel resection with colosotomy. ) - Family History Family History: Reports: Unknown - Social History Smoking Status: Former smoker Hx Substance Use: No Alcohol Screening: Occasionally Physical Exam - Physical Exam Appearance: Ill-appearing, Thin Ill-appearing: Mild Pain Distress: Mild Eyes: JANETT, EOMI, Conjunctiva clear ENT: Ears normal, Nose normal, Oropharynx normal Neck: Supple (No appreciable JVD) Respiratory: Airway patent, Breath sounds clear, Breath sounds equal Cardiovascular: RRR, Pulses normal, No rub, No murmur GI/: Soft, Nontender, No masses, Bowel sounds normal, No Organomegaly Musculoskeletal: Normal strength, ROM intact, No edema, No calf tenderness Skin: Warm, Dry, Normal color Neurological: Sensation intact, Motor intact, Reflexes intact, Cranial nerves intact Psychiatric: Affect appropriate, Mood appropriate Re-Evaluation - Re-Evaluation Time of Re-Evaluation: 18:25 (Improved -discussed with Dr Hernadez for admission) Status: Improved Vital Signs Stable: Yes Appearance: NAD Lungs: Clear Skin: Warm and Dry Neuro: Alert and Oriented X3 CV: RRR Critical Care Note - Critical Care Note Total Time (mins): 60 Course - Course Hematology/Chemistry: 12/06/17 17:14 12/06/17 17:14 Orders, Labs, Meds: Lab Review 12/06/17 12/06/17 12/06/17 17:00 17:14 17:14 WBC 7.44 RBC 4.25 L Hgb 13.0 L Hct 38.3 L MCV 90.1 MCH 30.6 MCHC 33.9 RDW Coeff of Neha 13.2 Plt Count 356 Immature Gran % (Auto) 1.2 Neut % (Auto) 67.9 Lymph % (Auto) 20.0 [place] % (Auto) 7.4 Eos % (Auto) 2.6 Baso % (Auto) 0.9 Immature Gran # (Auto) 0.1 Neut # (Auto) 5.1 Lymph # (Auto) 1.5 [place] # (Auto) 0.6 Eos # (Auto) 0.2 Baso # (Auto) 0.1 Sodium 134 L Potassium 3.7 Chloride 97 L Carbon Dioxide 27 Anion Gap 13.7 BUN 10 Creatinine 0.83 Estimated GFR (MDRD) 90.00 BUN/Creatinine Ratio 12.04 Glucose 155 H Calcium 9.7 Total Bilirubin 0.3 AST 24 ALT 36 Alkaline Phosphatase 70 Troponin I 0.0160 B-Natriuretic Peptide Total Protein 7.1 Albumin 3.4 Globulin 3.7 Albumin/Globulin Ratio 0.92 Urine Color Yellow Urine Clarity Cloudy Urine pH 6.0 Ur Specific Dustin 1.010 Urine Protein Trace Urine Glucose (UA) Negative Urine Ketones Negative Urine Blood Negative Urine Nitrite Negative Urine Bilirubin Negative Urine Urobilinogen 0.2 Ur Leukocyte Esterase 2+ Urine Microscopic WBC 20-30 Ur Squamous Epith Cells 0-2 Urine Bacteria 3+ 12/06/17 17:14 WBC RBC Hgb Hct MCV MCH MCHC RDW Coeff of Neha Plt Count Immature Gran % (Auto) Neut % (Auto) Lymph % (Auto) [place] % (Auto) Eos % (Auto) Baso % (Auto) Immature Gran # (Auto) Neut # (Auto) Lymph # (Auto) [place] # (Auto) Eos # (Auto) Baso # (Auto) Sodium Potassium Chloride Carbon Dioxide Anion Gap BUN Creatinine Estimated GFR (MDRD) BUN/Creatinine Ratio Glucose Calcium Total Bilirubin AST ALT Alkaline Phosphatase Troponin I B-Natriuretic Peptide 18 Total Protein Albumin Globulin Albumin/Globulin Ratio Urine Color Urine Clarity Urine pH Ur Specific Dust[place] Urine Protein Urine Glucose (UA) Urine Ketones Urine Blood Urine Nitrite Urine Bilirubin Urine Urobilinogen Ur Leukocyte Esterase Urine Microscopic WBC Ur Squamous Epith Cells Urine Bacteria Orders Category Date Time Status EKG-(ED ONLY) Stat CARDIO 12/06/17 16:59 Completed NPO REMINDER: IMAGING ONCE CARE 12/06/17 18:26 Completed IV [ED IV/MEDIPORT/POWERPORT] .ONCE EMERGENCY 12/06/17 18:00 Active BNP [B-TYPE NATRIURETIC PEPTIDE] Stat LAB 12/06/17 17:14 Completed CBC W/ AUTO DIFF Stat LAB 12/06/17 17:14 Completed CMP [COMPREHENSIVE METABOLIC PANEL] Stat LAB 12/06/17 17:14 Completed TROPONIN I Stat LAB 12/06/17 17:14 Completed UA [URINALYSIS C & S IF INDICATED] Stat LAB 12/06/17 17:00 Completed URINE CULTURE Stat LAB 12/06/17 17:00 Received 0.9 % Sodium Chloride [Saline Flush] MEDS 12/06/17 18:04 Ordered 1 syr IVF PRN PRN Enoxaparin Sodium [Lovenox] MEDS 12/06/17 18:22 Discontinued 100 mg SUBCUT ONCE STA Hydromorphone HCl/Pf [Dilaudid 2 mg/ml Syringe] MEDS 12/06/17 18:26 Discontinued 2 mg IVP ONCE STA CHEST, 1V AP ONLY Stat RADS 12/06/17 16:[address] CHEST PE PROTOCOL Stat RADS 12/06/17 18:23 Ordered Medications Generic Name Dose Route Start Last Admin Trade Name Freq PRN Reason Stop Dose Admin Sodium Chloride 1 syr 12/06/17 18:04 12/06/17 18:37 Saline Flush IVF 1 syr PRN PRN Administration To flush IV Discontinued Medications Generic Name Dose Route Start Last Admin Trade Name Freq PRN Reason Stop Dose Admin Enoxaparin Sodium 100 mg 12/06/17 18:22 12/06/17 18:37 Lovenox SUBCUT 12/06/17 18:23 100 mg ONCE STA Administration Hydromorphone HCl 2 mg 12/06/17 18:26 12/06/17 18:33 Dilaudid 2 Mg/Ml Syringe IVP 12/06/17 18:27 2 mg ONCE STA Administration Vital Signs: Temp Pulse Resp BP Pulse Ox 12/06/17 17:20 150/75 H 12/06/17 16:00 96.7 F L 90 20 172/91 H 95 VERA Risk Score VERA Risk Score: Risk Score Odds of by 30D 0 0.1 (0.1-0.2) 1 0.3 (0.2-0.3) 2 0.4 (0.3-0.5) 3 0.7 (0.6-0.9) 4 1.2 (1.0-1.5) 5 2.2 (1.9-2.6) 6 3.0 (2.5-3.6) 7 4.8 (3.8-6.1) Departure - Departure Time of Disposition: 19:00 Disposition: ADMITTED INPATIENT Discharge Problem: Chest pain, Dizziness, UTI (urinary tract infection), Chronic low back pain Condition: Fair Pt referred to PMD for follow-up: Yes (hernadez) IPMP verified?: No Allergies/Adverse Reactions: Allergies cephalexin monohydrate [From Keflex] Adverse Reaction (Verified 12/06/17 16:15) hydrocodone bitartrate [From Lortab] Adverse Reaction (Verified 12/06/17 16:15) latex Adverse Reaction (Verified 12/06/17 16:15) ranitidine HCl [From Zantac] Adverse Reaction (Verified 12/06/17 16:15) Sulfa (Sulfonamide Antibiotics) Adverse Reaction (Verified 12/06/17 16:15) vancomycin Adverse Reaction (Verified 12/06/17 16:15) Home Medications: Ambulatory Orders Aspirin [Aspirin Chewable] 81 mg PO DAILY 04/05/13 Metoprolol Tartrate [Lopressor] 25 mg PO BID 03/18/15 Losartan/Hydrochlorothiazide [Hyzaar 100-25 Tablet] 1 tab PO DAILY 12 Pantoprazole Sodium [Protonix] 40 mg PO BID #60 tablet. 03/29/16 Alprazolam 0.25 mg PO TID PRN 07/19/16 Docusate Sodium [Colace] 200 mg PO 1700 07/19/16 Metformin HCl [Glucophage] 500 mg PO TID 07/19/16 Oxycodone HCl/Acetaminophen [Percocet 10-325 mg Tablet] 1 each PO QID 08/24/16 Multivit-Min/FA/Lycopen/Lutein [Centrum Silver Tablet] 1 each PO 1200 01/26/17 Tamsulosin HCl [Flomax] 0.4 mg PO BEDTIME #30 cap.er.24h 01/28/17 Amlodipine Besylate [Norvasc] 5 mg PO BEDTIME 12/06/17 Omeprazole [Prilosec] 40 mg PO BEDTIME 12/06/17 Sucralfate [Carafate] 1 gm PO QID 12/06/17 Disposition Discussed With: Patient, Family, Other (Dr Hernadez; Discussed case; Opted to obtain Chest -CTA PE protocol due to mult risk factors)
--- NOTE | 2017-12-06 17:36 | DI ---
Exam: Single view chest x-ray. Date: 12/06/2017. Comparison: 01/26/2017. HISTORY: Pain. FINDINGS: Change of a sternotomy are present along with an elevated right hemidiaphragm. There is n o focal consolidation. Cardiac silhouette and pulmonary vasculature are normal. Impression: No acute intrathoracic findings. 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
[2017-12-06] MEDS ORDERED: LOVENOX SUBCUT STA (18:22)
[2017-12-06] MEDS ORDERED: DILAUDID 2 MG/ML SYRINGE IVP STA (18:26)
[2017-12-06] MEDS ORDERED: PERCOCET 5-325 PO PRN (19:19)
--- NOTE | 2017-12-06 20:15 | CT ---
Exam: CTA chest. Date: 12/06/2017. Comparison: None. HISTORY: Chest pain. TECHNIQUE: Helical scan through the thorax was performed following intravenous contrast. MIP and 3- D reconstruction was performed. FINDINGS: The thoracic inlet and axillary regions are normal. No suspicious mediastinal adenopathy is seen. The caliber of the thoracic aorta and cardiac chambers are within normal limits. The splee n and liver have a uniform enhancement. A cholecystectomy is noted. The stomach is normal. There i s diffuse fatty infiltration of the pancreas which is a normal variant. The adrenal glands are nia l. There is a 1.9 x 1.1 cm exophytic cyst off the upper pole left kidney. There is elevation of the right hemidiaphragm. There is plate and screw fixation along the left margin of the L2-3 vertebral bodies with a extensive sclerosis also present in the inferior body of L1 and the superior body of L2 with subchondral cyst. Change of a sternotomy are present. No displaced rib fractures are observed. Evaluation at lung window settings demonstrates minimal atelectasis or scarring in the right lower lo be. No suspicious pulmonary nodules or pleural fluid is present. The tracheobronchial tree is patent . Evaluation at lung window settings does not demonstrate any intraluminal filling defects out to the s egmental pulmonary arterial divisions. Impression: No evidence of emboli out to the segmental pulmonary arterial divisions. Elevation of the right hemidiaphragm with mild atelectasis or scarring. Cholecystectomy.
[2017-12-06] MEDS ORDERED: XANAX ONE ×3 (20:19→23:15)
[2017-12-06] MEDS: XANAX PO PRN ×2 (20:21→23:15)
[2017-12-06 20:59] VITALS: BMI 12.5
[2017-12-06] MEDS ORDERED: PERCOCET 10-325 PO SCH (21:00)
[2017-12-06] MEDS ORDERED: NON-FORMULARY MEDICATION (Pantoprazole Sodium [Protonix] 40 MG) PO SCH (21:00)
[2017-12-06] MEDS ORDERED: CARAFATE PO SCH (21:00)
[2017-12-06] MEDS ORDERED: PRILOSEC PO SCH (21:00)
[2017-12-06] MEDS ORDERED: PROTONIX ONE (21:30)
[2017-12-06] MEDS: FLOMAX PO SCH (21:38)
[2017-12-06] MEDS: LOPRESSOR PO SCH (21:38)
[2017-12-06] MEDS: PERCOCET 10-325 PO SCH (21:39)
[2017-12-06] MEDS: NORVASC PO SCH (21:39)
[2017-12-06] MEDS: XANAX ONE ×2 (23:13→23:14)
[2017-12-07] MEDS: PRILOSEC PO SCH (05:47)
[2017-12-07] MEDS: TYLENOL PO PRN (07:53)
[2017-12-07] MEDS ORDERED: TORADOL IVP STA (08:35)
[2017-12-07] MEDS ORDERED: NUBAIN IVP STA (08:39)
[2017-12-07] MEDS ORDERED: LOSARTAN PO SCH (09:00)
[2017-12-07] MEDS ORDERED: HYDROCHLOROTHIAZIDE PO SCH (09:00)
[2017-12-07] MEDS: PERCOCET 10-325 PO SCH ×4 (09:24→21:35)
[2017-12-07] MEDS: LEVAQUIN 500 MG in PREMIX 100 ML D5W 1 BAG IV SCH (09:24)
[2017-12-07] MEDS: HYZAAR 50-12.5 MG TAB PO SCH (09:25)
[2017-12-07] MEDS: ASPIRIN CHEWABLE PO SCH (09:25)
[2017-12-07] MEDS: PROTONIX PO SCH ×2 (09:25→16:57)
[2017-12-07] MEDS: LOPRESSOR PO SCH ×2 (09:25→21:35)
[2017-12-07] MEDS: LOVENOX SUBCUT SCH (09:26)
[2017-12-07] MEDS: XANAX PO PRN ×3 (10:54→21:35)
[2017-12-07] MEDS: CARAFATE PO SCH ×3 (10:54→21:35)
[2017-12-07] MEDS: HUMULIN R SUBCUT PRN ×3 (10:56→21:34)
--- NOTE | 2017-12-07 12:18 | US ---
Exam: Emmanuel-scale and color spectral Doppler ultrasonographic evaluation of the carotid arteries with waveform analysis. Comparison: 11/22/2013. Reason for exam: Dizziness. FINDINGS: There is a small amount of atheromatous plaque seen in the right internal carotid artery Right ECA measures 0.7 meters per second Right CCA measures 0.6 / 0.1 meters per second. Right internal carotid artery peak systolic velocity measures 0.8 meters per second Right internal carotid artery/CCA PSV ratio measures 1.3 Right internal carotid artery end-diastolic velocity 0.1 meters per second. Normal antegrade right vertebral artery flow. There is a small amount of atheromatous plaque seen in the proximal left internal carotid artery Left ECA measures 0.8 meters per second Left CCA measures 0.7 / 0.1 meters per second. Left internal carotid artery peak systolic velocity measures 0.9 meters per second Left internal carotid artery/CCA PSV ratio 1.3 Left internal carotid artery end-diastolic velocity 0.1 meters per second. There is normal antegrade left vertebral artery flow. Impression: 1. No ultrasonographic evidence of significant stenotic disease is seen in the right or left internal carotid arteries. 2. Normal antegrade vertebral artery flow is seen bilaterally
[2017-12-07] MEDS: VISTARIL INJ IM PRN (13:58)
[2017-12-07] MEDS ORDERED: COLACE PO SCH (17:00)
[2017-12-07] MEDS: FLOMAX PO SCH (21:35)
[2017-12-07] MEDS: NORVASC PO SCH (21:35)
[2017-12-08] MEDS: TYLENOL PO PRN ×4 (01:15→16:01)
[2017-12-08] MEDS: VISTARIL INJ IM PRN (01:23)
[2017-12-08] MEDS: PROTONIX PO SCH (06:27)
[2017-12-08] MEDS: PRILOSEC PO SCH (06:27)
[2017-12-08] MEDS: CARAFATE PO SCH ×2 (06:27→10:38)
[2017-12-08] MEDS: XANAX PO PRN (07:32)
[2017-12-08] MEDS ORDERED: NORVASC PO STA (08:31)
[2017-12-08] MEDS: LOPRESSOR PO SCH (08:59)
[2017-12-08] MEDS: LEVAQUIN 500 MG in PREMIX 100 ML D5W 1 BAG IV SCH (08:59)
[2017-12-08] MEDS: HYZAAR 50-12.5 MG TAB PO SCH (08:59)
[2017-12-08] MEDS: ASPIRIN CHEWABLE PO SCH (09:00)
[2017-12-08] MEDS: PERCOCET 10-325 PO SCH ×2 (09:00→12:31)
[2017-12-08] MEDS: LOVENOX SUBCUT SCH (09:02)
--- NOTE | 2017-12-08 09:05 | PCM.PROG ---
Attending Provider: ATTENDING PROVIDER: Dr. PARRIS YUAN This patient is seen with Irasema Ramon, Nurse Practitioner. DATE OF SERVICE: 12/08/17 SUBJECTIVE: This 77 year old WHITE/ M was hospitalized 12/06/17. The patient is lying in bed, alert. He states he would like to go home. He is eating and drinking well. No fever. No chest pain. REVIEW OF SYSTEMS: CONSTITUTIONAL: No night sweats. No fatigue, malaise, lethargy. No fever or chills. HEENT: Eyes: No visual changes. No eye pain. No eye discharge. ENT: No runny nose. No epistaxis. No sinus pain. No odynophagia. No congestion. RESPIRATORY: No cough, no congestion. No hemoptysis. No shortness of breath. CARDIOVASCULAR: No angina symptoms. No CHF symptoms. No atypical chest pain for CAD. No palpitations. No orthopnea.. GASTROINTESTINAL: No abdominal pain. No nausea or vomiting. No diarrhea or constipation. No hematemesis. No hematochezia. GENITOURINARY: Improving dysuria. No hematuria. No obstructive symptoms. No discharge. No pain. No significant abnormal bleeding. MUSCULOSKELETAL: No musculoskeletal pain; no joint swelling. NEUROLOGICAL: Awake, alert, oriented to time, place and person. No headache. No neck pain. No syncope. No seizures. No dizziness. PSYCHIATRIC: Not anxious. No depression. No suicidal thoughts. No homicidal thoughts. SKIN: No rash. No lesions. No wounds. ENDOCRINE: No unexplained weight loss. No weight gain. HEMATOLOGIC/LYMPHATIC: No anemia. No purpura. No petechiae. No prolonged or excessive bleeding. No palpable lymph nodes. PHYSICAL EXAMINATION: GENERAL: The patient is awake, alert and oriented, lying in bed in no distress. VITAL SIGNS: Temperature 98.0 F, Pulse 82, Respiratory Rate 14, BP 180/78, Pulse Ox 98% HEENT: Head normocephalic, atraumatic. Eyes: Extraocular muscles are intact. Pupils are equal, round and reactive to light and accommodation. Ears: No lesions. Nose appeared normal. Throat: No exudate or erythema. NECK: Supple. No JVD, no carotid bruit. No lymphadenopathy or thyromegaly. LUNGS: Clear to auscultation. Percussion note normal. Chest symmetrical. HEART: S1, S2, no S3. No murmurs. No cyanosis or clubbing. No ascites. Pulses: Dorsalis pedis and posterior tibial pulses +1 to +2 both sides. ABDOMEN: Soft. Non-tender. Bowel sounds active. No CVA tenderness. No mass felt. EXTREMITIES: No edema. Full range of motion of all extremities, equal. NEUROLOGIC: No focal deficit. Cranial nerves II through XII are grossly intact. No headache, no double vision or headache. SKIN: Not dry. Intact. Turgor-normal. LYMPHATIC: No palpable lymph nodes/no lymphedema. MUSCULOSKELETAL: Normal joints with no swelling. Muscle tone is normal. LAB REVIEW: 12/08/17 04:30 12/08/17 04:30 12/08/17 04:30: Sodium 133 L, Potassium 4.3, Chloride 97 L, Carbon Dioxide 28, Anion Gap 12.3, BUN 12, Creatinine 0.84, Estimated GFR (MDRD) 89.00, BUN/ Creatinine Ratio 14.28, Glucose 139 H, Calcium 9.3, Total Bilirubin 0.4, AST 23 , ALT 34, Alkaline Phosphatase 66, Total Protein 6.4, Albumin 3.2 L, Globulin 3.2, Albumin/Globulin Ratio 1.00 12/08/17 04:30: WBC 7.62, RBC 4.07 L, Hgb 12.1 L, Hct 36.6 L, MCV 89.9, MCH 29.7 , MCHC 33.1, RDW Coeff of Neha 13.2, Plt Count 312, Immature Gran % (Auto) 1.4, Neut % (Auto) 65.2, Lymph % (Auto) 21.0, Mar[place]osa % (Auto) 9.2, Eos % (Auto) 2.5, Baso % (Auto) 0.7, Immature Gran # (Auto) 0.1, Neut # (Auto) 5.0, Lymph # (Auto ) 1.6, Mariposa # (Auto) 0.7, Eos # (Auto) 0.2, Baso # (Auto) 0.1 12/07/17 09:30: Troponin I 0.0100 ASSESSMENT: 1. UTI, E. COLI 2. HYPERTENSION 3. CHEST PAIN, ATYPICAL AND RESOLVED PLAN: 1. Will discuss possible discharge today. 2. Norvasc 10 mg (5 mg now and 5 mg at bedtime today) Plan and coordination of the patient's care discussed in the presence of Automated Cutting Machine Operator and nurse. CONDITION: Stable SCRIBED BY: SCOTT BERMUDEZ Automobile Sales Representative scribed while in presence of service performed by Dr. Yuan/Irasema Ramon APRN on 12/08/17 ([id number])
[2017-12-08] MEDS: HUMULIN R SUBCUT PRN (11:12)
--- NOTE | 2017-12-08 12:40 | ECHO2D ---
Date of Exam: 12/06/17 Ordering Physician: DR. PARRIS YUAN Room #: [id number] Reason for Echo: CHEST PAIN M-Mode Normal Adult Results LV Dimensions Normal Adult Results AoV Opening excursions >1.6 >1.6 LVEDD-base- 3.5-5.8 4.9 Ao root dimensions 2.0-3.7 3.6 LVESD-base- 3.1-4.6 L. Atrium dimensions 1.9-3.8 4.3 Post. Wall thickness 0.8-1.1 1.2 IV septum (thickness) 0.7-1.2 1.4 Post. Wall excursion 0.72-1.3 NORMAL Septal motion 0.6 Systolic motion R. Ventricular cavity 1.5-2.0 NORMAL LVEF 60% 61% Paradoxical septal wall motion NORMAL 2-D : ENLARGED LEFT ATRIAL CAVITY--HYPOKINETIC SEPTUM--NORMAL LEFT VENTRICLE CAVITY SIZE--NORMAL VALVES--NO EFFUSION, NO THROMBUS M-MODE: MV: NORMAL AV: NORMAL TV: NORMAL PV: CHAMBER SIZE: ENLARGED LEFT ATRIAL CAVITY WALL MOTION: HYPOKINETIC SEPTUM PERICARDIUM: NORMAL INTERPRETATION: 1. LEFT VENTRICULAR HYPERTROPHY WITH ENLARGED LEFT ATRIAL CAVITY 2. HYPOKINETIC SEPTUM WITH LEFT VENTRICULAR EJECTION FRACTION 61% MTDD
[2017-12-08 14:25] VITALS: BP 144/80; TEMP 98
--- NOTE | 2017-12-08 15:50 | CM.DICTOOL ---
ADMISSION: 12/06/17 18:41 DISCHARGE: 12/08/17 DATE OF SERVICE: 12/08/17 FINAL DIAGNOSIS UTI (E-COLI) CHEST PAIN CHRONIC LOW BACK PAIN, ACUTE DIZZINESS, ACUTE DEHYDRATION HYPERTENSION CAD S/P CABG, 1966 DYSLIPIDEMIA DJD SPINE DM, TYPE 2 OA B12 DEFICIENCY IRON DEFICIENCY ANEMIA APPENDICEAL CARCINOMA S/P COLECTOMY W/COLOSTOMY, LEFT UPPER ABDOMEN SEVERE ANXIETY/MILD DEPRESSION HERNIA REPAIR APPENDECTOMY CATARACT EXTRACTION SPINAL FUSION W/INSTRUMENTATION L2 THROUGH L5, 07/02/15 (LEXI STEELE) RIGHT MICRODISKECTOMY LAPAROSCOPIC CHOLECYSTECTOMY FISTULA URINARY BLADDER/COLON REPAIR BILATERAL KNEE REPLACEMENTS LAST VITALS Temp Pulse Resp BP Pulse Ox 98 F 80 20 144/80 H 96 12/08/17 14:00 12/08/17 14:00 12/08/17 14:00 12/08/17 14:00 12/08/17 14:00 TAKE THESE MEDICATIONS AT HOME Alprazolam (Xanax) 0.25 mg PO TID PRN PRN Reason: ANXIETY Last Admin: 12/08/17 07:32 Dose: 0.25 mg Amlodipine Besylate (Norvasc) 10 mg PO DAILY [facility] Aspirin (Aspirin Chewable) 81 mg PO DAILYWM [facility] Last Admin: 12/08/17 09:00 Dose: 81 mg Docusate Sodium (Colace) 200 mg PO 1700 [facility] Last Admin: 12/07/17 16:57 Dose: 200 mg HCTZ/Losartan Potassium (Hyzaar 50-12.5 Mg Tab) 2 tab PO DAILY [facility] Last Admin: 12/08/17 08:59 Dose: 2 tab Levofloxacin (Levaquin) 500 mg PO DAILY x7 DAYS [facility] Metformin HCL (Glucophage) 500 mg PO TID Metoprolol Tartrate (Lopressor) 25 mg PO BID [facility] Last Admin: 12/08/17 08:59 Dose: 25 mg Multivit/Minerals (Centrum Silver) 1 tab PO at 1200 DAILY Omeprazole (Prilosec) 20 mg PO QDAC [facility] Last Admin: 12/08/17 06:27 Dose: 20 mg Oxycodone/Acetaminophen (Percocet 10-325) 1 tab PO QID [facility] Last Admin: 12/08/17 12:31 Dose: 1 tab Pantoprazole Sodium (Protonix) 40 mg PO BIDAC [facility] Last Admin: 12/08/17 06:27 Dose: 40 mg Sucralfate (Carafate) 1 gm PO ACHS [facility] Last Admin: 12/08/17 10:38 Dose: 1 gm Tamsulosin HCl (Flomax) 0.4 mg PO BEDTIME [facility] Last Admin: 12/07/17 21:35 Dose: 0.4 mg ALLERGIES cephalexin monohydrate [From Keflex] Adverse Reaction (Verified 12/06/17 16:15) hydrocodone bitartrate [From Lortab] Adverse Reaction (Verified 12/06/17 16:15) latex Adverse Reaction (Verified 12/06/17 16:15) ranitidine HCl [From Zantac] Adverse Reaction (Verified 12/06/17 16:15) Sulfa (Sulfonamide Antibiotics) Adverse Reaction (Verified 12/06/17 16:15) vancomycin Adverse Reaction (Verified 12/06/17 16:15) NEW PRESCRIPTIONS: Amlodipine Besylate [Norvasc] 10 mg PO DAILY #30 tablet 12/08/17 Levofloxacin [Levaquin] 500 mg PO QDAC #7 tablet 12/08/17 SMOKING: FORMER SMOKER NONE NOW DISEASE SPECIFIC EDUCATION: CHEST PAIN UTI (E-COLI) HYPERTENSION HOME MEDICATIONS NEW PRESCRIPTIONS FOLLOW UP LAB REVIEW: 12/08/17 04:30 12/08/17 04:30 12/08/17 04:30: Sodium 133 L, Potassium 4.3, Chloride 97 L, Carbon Dioxide 28, Anion Gap 12.3, BUN 12, Creatinine 0.84, Estimated GFR (MDRD) 89.00, BUN/ Creatinine Ratio 14.28, Glucose 139 H, Calcium 9.3, Total Bilirubin 0.4, AST 23 , ALT 34, Alkaline Phosphatase 66, Total Protein 6.4, Albumin 3.2 L, Globulin 3.2, Albumin/Globulin Ratio 1.00 12/08/17 04:30: WBC 7.62, RBC 4.07 L, Hgb 12.1 L, Hct 36.6 L, MCV 89.9, MCH 29.7 , MCHC 33.1, RDW Coeff of Neha 13.2, Plt Count 312, Immature Gran % (Auto) 1.4, Neut % (Auto) 65.2, Lymph % (Auto) 21.0, Cowley % (Auto) 9.2, Eos % (Auto) 2.5, Baso % (Auto) 0.7, Immature Gran # (Auto) 0.1, Neut # (Auto) 5.0, Lymph # (Auto ) 1.6, Cowley # (Auto) 0.7, Eos # (Auto) 0.2, Baso # (Auto) 0.1 PLAN: DISCHARGE HOME TODAY RETURN TO SEE DR. YUAN ON 12/15/17 AT 11 A.M. RESUME YOUR HOME MEDICATIONS PER LIST PROVIDED BY THE NURSING STAFF PLEASE NOTE INSTRUCTIONS TO INCREASE YOUR AMLODIPINE BESYLATE (NORVASC) TO 10 MG PO DAILY BEGIN THE NEW DOSE ON 12/08/17 TONIGHT, 12/08/17, TAKE YOUR NORVASC 5 MG USUAL NEW PRESCRIPTIONS LEVAQUIN 500 MG, TAKE ONE TABLET BY MOUTH DAILY FOR 7 DAYS AMLODIPINE BESYLATE (NORVASC) 10 MG, TAKE ONE TABLET BY MOUTH DAILY BEGIN ON 05/16 ACTIVITY GET PLENTY OF REST AT HOME. GRADUALLY INCREASE YOUR ACTIVITY LEVEL ACCORDING TO YOUR TOLERATION DIET HEALTHY HEART SUMMARY THE PATIENT IS ALERT AND ORIENTED X3. HE CURRENTLY RESIDES AT HOME WITH HIS SPOUSE. HE HAS BEEN INDEPENDENT WITH ADL'S AND IS ABLE TO COMPLETE SELF CARE FOR HIS COLOSTOMY AND SELF-BLADDER CATHETERIZATION HE IS REQUIRED TO PERFORM TWICE DAILY. AT HOME HE HAS OSTOMY SUPPLIES, STRAIGHT CATH SUPPLIES, GLUCOMETER AND TESTING SUPPLIES, BLOOD PRESSURE CUFF, ROLLING WALKER AND CRUTCHES. HE DOES NOT REQUIRE HOME HEALTH OR HOMEMAKING SERVICES. HE DESIRES TO RETURN HOME AT DISCHARGE. THE SKIN TURGOR IS INTACT AND WITHOUT DECUBITUS ULCERS. HYDRATION AND NUTRITIONAL STATUS ARE GOOD. MR BUTLER DENIES HAVING ANY FURTHER CHEST DISCOMFORT. HE IS PREDISPOSED TO FREQUENT UTIs DUE TO HIS NEED TO EMPTY HIS BLADDER VIA STRAIGHT CATHETERIZATION TWICE DAILY. WE HAVE BEEN TREATING THE UTI (E-COLI) WITH LEVAQUIN IV. HE WILL BE PROVIDED PRESCRIPTION FOR ORAL LEVAQUIN TO COMPLETE THE COURSE AT HOME. BLOOD PRESSURES WERE MILDLY AND CONSISTENTLY ELEVATED DURING THIS STAY. WE HAVE INCREASED THE PATIENT'S NORVASC FROM 5 MG TO 10 MG DAILY. WE WILL CONTINUE TO MONITOR FOR DESIRED EFFECTS THROUGH THE OFFICE. MR. BUTLER HAS REQUESTED TO BE DISCHARGED HOME TODAY. WE WOULD HAVE LIKED FOR HIM TO REMAIN IN THE HOSPITAL FOR AT LEAST ANOTHER DAY OF IV ANTIBIOTICS DUE TO HIS PREDISPOSITION FOR UTIs. HE IS ADAMANT ABOUT BEING DISCHARGED TODAY. WE WILL FOLLOW HIM THROUGH THE OFFICE IN ONE WEEK. CURRENT CODE STATUS DO NOT INTUBATE, CPR ONLY EULA ROMERO APRN PARRIS YUAN M.D.
--- NOTE | 2017-12-09 08:10 | CT ---
EXAM: CT pelvis without contrast HISTORY: Pain in the hips and pelvis. COMPARISON: CT abdomen pelvis 03/14/2016 and multiple priors. TECHNIQUE: Serial axial images of the pelvis were performed without contrast. These were viewed in multiple planes. FINDINGS: There is no acute abnormality or displaced fracture with degenerative disease of the lumbos acral spine with disc spacer material at L4-L5 and L5-S1. The hips demonstrate mild narrowing and ost eophyte formation. Pubic symphysis and sacroiliac joints are intact. There is no lytic or blastic le mp. Soft tissues demonstrate the colon and small bowel are unremarkable. Limited views of the inf erior aspect of the left kidney demonstrates a round low attenuation lesion 5.3 cm in diameter with l ow attenuation. The urinary bladder is distended. There is anterior mesh. IMPRESSION: 1. No acute abnormality of the pelvis or lumbosacral spine. 2. There are surgical changes in the lumbosacral spine with mesh in the anterior pelvis. 3. 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
[2017-12-09] MEDS ORDERED: LEVAQUIN 250 MG in PREMIX 50 ML D5W 1 BAG IV SCH (09:00)
[2017-12-09] MEDS ORDERED: NORVASC PO SCH (09:00)
--- NOTE | 2017-12-09 10:27 | DS ---
DATE OF SERVICE: 12/08/17 FINAL DIAGNOSIS: UTI (E-COLI) CHEST PAIN CHRONIC LOW BACK PAIN, ACUTE DIZZINESS, ACUTE DEHYDRATION HYPERTENSION CAD S/P CABG, 1966 DYSLIPIDEMIA DJD SPINE DM, TYPE 2 OA B12 DEFICIENCY IRON DEFICIENCY ANEMIA APPENDICEAL CARCINOMA S/P COLECTOMY W/COLOSTOMY, LEFT UPPER ABDOMEN SEVERE ANXIETY/MILD DEPRESSION HERNIA REPAIR APPENDECTOMY CATARACT EXTRACTION SPINAL FUSION W/INSTRUMENTATION L2 THROUGH L5, 07/02/15 (LEXI STEELE) RIGHT MICRODISKECTOMY LAPAROSCOPIC CHOLECYSTECTOMY FISTULA URINARY BLADDER/COLON REPAIR BILATERAL KNEE REPLACEMENTS LAST VITALS: Temp Pulse Resp BP Pulse Ox 98 F 80 20 144/80 H 96 TAKE THESE MEDICATIONS AT HOME: Alprazolam (Xanax) 0.25 mg PO TID PRN Amlodipine Besylate (Norvasc) 10 mg PO DAILY [facility] Aspirin (Aspirin Chewable) 81 mg PO DAILYWM [facility] Docusate Sodium (Colace) 200 mg PO 1700 [facility] HCTZ/Losartan Potassium (Hyzaar 50-12.5 Mg Tab) 2 tab PO DAILY [facility] Levofloxacin (Levaquin) 500 mg PO DAILY x7 DAYS [facility] Metformin HCL (Glucophage) 500 mg PO TID Metoprolol Tartrate (Lopressor) 25 mg PO BID [facility] Multivit/Minerals (Centrum Silver) 1 tab PO at 1200 DAILY Omeprazole (Prilosec) 20 mg PO QDAC [facility] Oxycodone/Acetaminophen (Percocet 10-325) 1 tab PO QID [facility] Pantoprazole Sodium (Protonix) 40 mg PO BIDAC [facility] Sucralfate (Carafate) 1 gm PO ACHS [facility] Tamsulosin HCl (Flomax) 0.4 mg PO BEDTIME [facility] ALLERGIES: cephalexin monohydrate [From Keflex] Adverse Reaction (Verified 12/06/17 16:15) hydrocodone bitartrate [From Lortab] Adverse Reaction (Verified 12/06/17 16:15) latex Adverse Reaction (Verified 12/06/17 16:15) ranitidine HCl [From Zantac] Adverse Reaction (Verified 12/06/17 16:15) Sulfa (Sulfonamide Antibiotics) Adverse Reaction (Verified 12/06/17 16:15) vancomycin Adverse Reaction (Verified 12/06/17 16:15) NEW PRESCRIPTIONS: Amlodipine Besylate [Norvasc] 10 mg PO DAILY #30 tablet 12/08/17 Levofloxacin [Levaquin] 500 mg PO QDAC #7 tablet 12/08/17 SMOKING: FORMER SMOKER NONE NOW DISEASE SPECIFIC EDUCATION: CHEST PAIN UTI (E-COLI) HYPERTENSION HOME MEDICATIONS NEW PRESCRIPTIONS FOLLOW UP PLAN: DISCHARGE HOME TODAY RETURN TO SEE DR. YUAN ON 12/15/17 AT 11 A.M. RESUME YOUR HOME MEDICATIONS PER LIST PROVIDED BY THE NURSING STAFF PLEASE NOTE INSTRUCTIONS TO INCREASE YOUR AMLODIPINE BESYLATE (NORVASC) TO 10 MG PO DAILY BEGIN THE NEW DOSE ON 12/08/17 TONIGHT, 12/08/17, TAKE YOUR NORVASC 5 MG USUAL ACTIVITY: GET PLENTY OF REST AT HOME. GRADUALLY INCREASE YOUR ACTIVITY LEVEL ACCORDING TO YOUR TOLERATION DIET: HEALTHY HEART HOSPITAL COURSE: The patient was hospitalized feeling weak, fatigue and tired after he walked over to the mailbox. The patient's entire workup has been negative with negative cardiovascular markers. Echo showed normal LV contractility with mildly hypokinetic septum with normal ejection fraction. He also has abnormal U/ A. He has recurrent UTI. He catheterizes himself twice a day for past 2-[address] Carrillo. The patient has been given Levaquin for his urinary tract infection. He has been requiring increase amount of medication for his back problems. He had status post back surgery a couple of times and had bilateral knee replacement. His other problems are coronary bypass surgery, C of the appendix, colostomy, anxiety with panic type of disorder. He has been warned about the amount of the medication he has been taking. Stable cardiovascular status. He will be going home on Levaquin 500mg PO daily. CONDITION: Stable. TIME SPENT: More than 60 minutes. [facility]
--- NOTE | 2017-12-09 10:29 | PN ---
12/06/17: Level 5 12/07/17: Intermediate 12/08/17: D as in discharge MTDD
--- NOTE | 2017-12-09 10:30 | PN ---
DATE OF SERVICE: 12/08/17 DISCHARGE NOTE SUBJECTIVE: The patient was hospitalized feeling weak, fatigue and tired after he walked over to the mailbox. The patient's entire workup has been negative with negative cardiovascular markers. Echo showed normal LV contractility with mildly hypokinetic septum with normal ejection fraction. He also has abnormal U/ A. He has recurrent UTI. He catheterizes himself twice a day for past 2-[address] Carrillo. The patient has been given Levaquin for his urinary tract infection. He has been requiring increase amount of medication for his back problems. He had status post back surgery a couple of times and had bilateral knee replacement. His other problems are coronary bypass surgery, C of the appendix, colostomy, anxiety with panic type of disorder. He has been warned about the amount of the medication he has been taking. Stable cardiovascular status. He will be going home on Levaquin 500mg PO daily. The patient was seen and examined with Nurse Practitioner. TIME SPENT: More than 30 minutes. Plan and coordination of the patient's care discussed in the presence of nurse. ARINA
--- NOTE | 2017-12-09 10:41 | HP ---
DATE OF SERVICE: 12/06/17 REASON FOR HOSPITALIZATION/HISTORY OF PRESENT ILLNESS: 77 year old white male who presented to the emergency room with dizziness and left sided chest pain into his axillary region. He had no associated nausea or vomiting, shortness of breath and no arm pain. PAST MEDICAL HISTORY: Coronary artery disease Chronic back pain Recurrent UTI catheterizes himself twice daily Anxiety Anemia Hypertension Diabetes Mellitus type 2 A1c 6.9 on 09/14 History of cancer of the appendix Depression B12 deficiency Osteoarthritis PAST SURGICAL HISTORY: CABG 1996 Back surgery times three Appendectomy Colon resection Left total knee replacement L2-L5 fusion Status post cholecystectomy REVIEW OF SYSTEMS: CONSTITUTIONAL: No night sweats. No fatigue, malaise, lethargy. No fever or chills. Weakness. HEENT: Eyes: No visual changes. No eye pain. No eye discharge. ENT: No runny nose. No epistaxis. No sinus pain. No sore throat. No odynophagia. No ear pain. No congestion. RESPIRATORY: No cough, no congestion. No hemoptysis. No shortness of breath. CARDIOVASCULAR: No angina symptoms. No CHF symptoms. Atypical chest pain for CAD. No palpitations. No PND. No orthopnea. GASTROINTESTINAL: No abdominal pain. No nausea or vomiting. No diarrhea or constipation. No hematemesis. No hematochezia. GENITOURINARY: No urgency. No frequency. No dysuria. No hematuria. No obstructive symptoms. No discharge. No pain. No significant abnormal bleeding. MUSCULOSKELETAL: No musculoskeletal pain. No joint swelling. No arthritis. NEUROLOGICAL: No headache. No neck pain. No syncope. No seizures. Dizziness. PSYCHIATRIC: Not anxious. No depression. No suicidal thoughts. No homicidal thoughts. SKIN: No rash. No lesions. No wounds. ENDOCRINE: No unexplained weight loss. No weight gain. HEMATOLOGIC/LYMPHATIC: No anemia. No purpura. No petechiae. No prolonged or excessive bleeding. No palpable lymph nodes. PERSONAL/FAMILY/SOCIAL HISTORY: The patient is and lives at home with his . He has to use a cane. No alcohol or illicit drug use. Nonsmoker. MEDICATIONS: Aspirin 81mg PO daily Lopressor 25mg PO twice a day Hyzaar 100-25 PO daily Protonix 20mg PO twice a day Glucophage 500mg PO three times a day Colace 100mg PO 1700 Alprazolam 0.5mg PO three times a day PRN Percocet 10-325mg PO four times a day Centrum PO 1200 Flomax 0.4mg PO bedtime Norvasc 5mg PO bedtime Prilosec 20mg PO QDAC Carafate 1gram PO four times a day ALLERGIES: Cephalexin Monohydrate Hydrocodone bitartrate Latex Ranitidine Sulfa Vancomycin PHYSICAL EXAMINATION: GENERAL: The patient is alert and oriented. HEENT: Head normocephalic, atraumatic. Eyes: Extraocular muscles are intact. Pupils are equal, round and reactive to light and accommodation. Ears: No lesions. Nose appeared normal. Throat: No exudate or erythema. NECK: Supple. No JVD, no carotid bruit. No lymphadenopathy or thyromegaly. LUNGS: Clear to auscultation. Percussion note normal. Chest symmetrical. HEART: S1, S2, no S3. No murmurs. No cyanosis or clubbing. No ascites. Pulses: Dorsalis pedis and posterior tibial pulses +1 to +2 bilaterally. ABDOMEN: Soft. Nontender. Bowel sounds active. No CVA tenderness. No mass felt. EXTREMITIES: No edema. Full range of motion of all extremities, equal. NEUROLOGIC: No focal deficit. Cranial nerves II through XII are grossly intact. No headache, no double vision or headache. SKIN: Not dry. Intact. Turgor - normal. LYMPHATIC: No palpable lymph nodes/no lymphedema. MUSCULOSKELETAL: Normal joints with no swelling. Muscle tone is normal. LABS: WBC 7.44, hgb 13.0, hct 38.3, plt count 356, sodium 134, potassium 3.7, BUN 10, creatinine 0.83, sugar 155, AST 24, ALT 36, Alkaline phosphatase 70, total protein 7.1, troponin 0.0160. Urine shows 3+ bacteria, 2+ leukocyte esterase, trace protein and is cloudy. CTA of the chest shows no evidence of emboli. Chest x-ray shows no acute findings. ASSESSMENT: 1. Chest pain 2. Acute urinary tract infection 3. Coronary artery disease status post CABG 4. Hypertension 5. Dyslipidemia 6. History of Cancer of the appendix 7. Status post colon resection 8. Chronic back pain 9. Dizziness 10.Weakness. PLAN: 1. Will admit him 2. Routine telemetry orders 3. CBC and CMP daily 4. Levaquin IV 500mg daily 5. Continue all home medications 6. Will scheduled echo tomorrow 7. Cardiac markers 8. Regular diet 9. Continue all home medications. TIME SPENT: More than 70 minutes. MTDD
== END 2017-12-08 16:30 | disposition home or self-care (01) | DRG 690 ==
LOC: ED 15:57 → MEDSURG B 18:41
PROVIDERS: ADMIT Internal Medicine; ATTEND Internal Medicine
DX: N39.0 Urinary tract infection, site not specified (principal); B96.89 Other specified bacterial agents as the cause of diseases classified elsewhere; I25.10 Atherosclerotic heart disease of native coronary artery without angina pectoris; I10 Essential (primary) hypertension; E78.5 Hyperlipidemia, unspecified; M54.9 Dorsalgia, unspecified; R42 Dizziness and giddiness; R53.1 Weakness; R06.02 Shortness of breath; E11.9 Type 2 diabetes mellitus without complications; E86.0 Dehydration; M47.9 Spondylosis, unspecified; M19.90 Unspecified osteoarthritis, unspecified site; E53.8 Deficiency of other specified B group vitamins; E61.1 Iron deficiency; F41.8 Other specified anxiety disorders; Z85.038 Personal history of other malignant neoplasm of large intestine
CPT/HCPCS: 36415; 80053; 81001; 82962; 83880; 84484; 85025; 85610; 87086; 87186; 93005; 93010; 96372; 96374; 99284

== ENCOUNTER 2018-02-17 20:11 | Emergency (ER) | payer OTHER ==
[2018-02-17 20:14] VITALS: BMI 27.6
--- NOTE | 2018-02-17 21:53 | CT ---
EXAM: CT of the thoracic spine without contrast. HISTORY: Pain. PROCEDURE: Contiguous axial CT images of the thoracic spine without contrast with coronal and sagitt al reformats. FINDINGS: CT lumbar spine of 02/17/2018 reviewed in conjunction with this exam. There is mild dextro scoliosis of the thoracic spine. There is normal alignment of the thoracic vertebral bodies and face ts. The vertebral body heights and intervertebral disc spaces are maintained. No evidence of fractur e. There are degenerative changes involving the endplates at multiple levels of the thoracic spine. There is multilevel facet arthropathy. Impression: Normal alignment of the thoracic spine with degenerative changes as described.
--- NOTE | 2018-02-17 21:57 | CT ---
EXAM: CT THORAX HISTORY: Chest pain. TECHNIQUE: CT thorax without intravenous contrast. Multiplanar images presented. COMPARISON: 12/06/2017 FINDINGS: Normal heart size. No pericardial effusion. Moderate atherosclerotic disease. Limited evaluation of the mediastinum and hilar structures without the administration of intravenous contrast agent. No gr oss mediastinal or hilar lymphadenopathy nor hilar mass. Elevated right hemidiaphragm. There is mild adjacent atelectasis and bronchovascular crowding. No d efinite acute infiltrates or vascular congestion. No pleural fluid or pneumothorax. Bones reveal severe degenerative disc and facet disease of the lower spine with stabilization hardwar e in place. At what is thought to represent L1/L2, there is endplate lucency unchanged since the pre vious study although new since an older exam dated 10/07/2016 (lumbar spine CT). Nonspecific bilater al perinephric fat stranding is noted. IMPRESSION: 1. No acute cardiopulmonary process. 2. Atherosclerotic disease. 3. End plate lucencies at what is thought to represent inferior endplate of L1, stable since 018 although new since 10/07/2016. This may be related to longstanding degenerative disc disease. An infectious process (osteomyelitis/diskitis) at this level is not excluded. Correlate with patient h istory and physical exam. If warranted clinically, follow-up MRI can be considered.
[2018-02-17] MEDS ORDERED: AZACTAM 1 GM in SODIUM CHLORIDE 50 ML IV STA (22:00)
--- NOTE | 2018-02-17 22:07 | CT ---
EXAM: CT of the abdomen and pelvis without contrast. HISTORY: Back pain. Fever. PROCEDURE: Contiguous axial CT images of the abdomen and pelvis without contrast with coronal and sa gittal reformats. FINDINGS: Comparison made with CT of 12/08/2017. The exam is limited without IV contrast. The liver is normal in appearance. The gallbladder is surgically absent. There is atrophy of the pancreas. The spleen and adrenal glands are normal in appearance. There is right renal cortical scarring. There i s a fluid density cyst in the left kidney. The abdominal aorta is within normal limits in diameter. There are atherosclerotic calcifications in the abdominal aorta. There is asymmetric enlargement of the left psoas and iliacus muscles which measure up to 8.7 x 7.5 cm on a single axial image with hari cent inflammatory stranding. There is a partial colectomy with a left-sided ostomy. There are surgica l sutures along the margin of the ascending colon. The appendix is surgically absent. No free fluid o r free air in the abdomen or pelvis. The bladder is adequately filled. There is minimal air in the b ladder. The seminal vesicles and prostate gland are unremarkable. There are degenerative and operati ve changes in the spine. Impression: Asymmetric enlargement of the left psoas and iliacus muscles as described with adjacent inflammatory stranding. The differential diagnosis includes intramuscular hematoma and phlegmon/deve loping abscess. Minimal air in the bladder consistent with infection versus recent Lovell catheter placement. Partial colectomy with left-sided ostomy. Right renal cortical scarring. Pancreatic atrophy. Cholecystectomy.
--- NOTE | 2018-02-17 22:10 | CT ---
EXAM: CT scan lumbar spine HISTORY: Back pain COMPARISON: CT scan lumbar spine 10/07/2016 FINDINGS: Contiguous axial images obtained through the lumbar spine utilizing 3-mm collimation. Sag ittal coronal reconstructions were imaged and reviewed.. There are four [id number] lumbar verte bral bodies.. At the thoracolumbar junction is a vertebral with hypoplastic ribs which will be desig nated T12-L1 There is extensive osteopenia.. There has been interval removal of transpedicular screw fixation throughout the lumbar spine.. Redemonstrated are postoperative changes involving discectom y with interbody fusion plugs at L2-L3 through L4-L5.. There is right lateral plate and screw fixat ion at L2-L3 L3-L4 . At L1-L2 there is spondylitic bulge which narrows the AP dimension of the centr al canal. There is facet arthropathy with mild left neural foraminal narrowing.. At L2-L3 there is a concentric disc bulge with facet arthropathy. The central canal and both neural foramen are narrow ed..At L3-L4 there is narrowing of the central canal and both neural foramen.. At L4-L5 there has be en prior right hemilaminectomy. There is mild narrowing of the left neural foramen.. At L5-S1 there is mild bilateral neural foraminal narrowing. IMPRESSION: Interval removal of the transpedicular hardware Moderate generalized osteopenia. Postoperative changes consistent with prior multilevel discectomy with interbody spacer placement Multilevel central canal and foraminal stenosis as described.
[2018-02-17] MEDS ORDERED: AZACTAM ONE (22:12)
[2018-02-17] MEDS ORDERED: SODIUM CHLORIDE 50 ML IV ONE (22:18)
--- NOTE | 2018-02-17 22:23 | ED.PDOC ---
General ED Provider: Dr. TAMMI ALAS-ER Chief Complaint: Back Pain Stated Complaint: his back hurts--he has a fever and now is weak and his back hurts Time Seen by Physician: 20:15 Mode of Arrival: Wheelchair Information Source: Patient, Family Exam Limitations: No limitations Primary Care Provider: PARRIS HERNADEZ Nursing and Triage Documentation Reviewed and Agree: Yes Does patient meet sepsis criteria?: No System Inflammatory Response Syndrome: Not Applicable Sepsis Protocol: For patient's 13 years and over: Temp is 96.8 and below OR 101 and greater Pulse >90 BPM Resp >20/minute Acutely Altered Mental Status Are patient's symptoms suggestive of a new infection, such as: -Pneumonia -Skin, Soft Tissue -Endocarditis -UTI -Bone, Joint Infection -Implantable Device -Acute Abdominal Infection -Wound Infection -Meningitis -Blood Stream Catheter Infection -Unknown Musculoskeletal Complaint Exam - Back Pain Complaint/Exam Mechanism of Injury: Reports: No known trauma Onset/Duration: several days Symptoms Are: Still present Timing: Constant Initial Severity: Mild Current Severity: Moderate Location: Reports: Discrete (mid to lower back) Character: Reports: Dull, Aching Aggravating: Reports: Movements, Lifting, Bending, Walking Alleviating: Reports: None Associated Signs and Symptoms: Reports: Fever, Weakness TAD Risk Factors: Reports: None AAA Risk Factors: Reports: None Cauda Equina Risk Factors: Reports: None Epidural Abcess Risk Factors: Reports: None Related Surgical History: Reports: Back Surgery Focal Tenderness: Yes Paraspinal Muscle Tenderness: Yes Paraspinal Muscle Spasm: No Scoliosis: No Lordosis: No Kyphosis: No SLR Test: Right Negative, Left Negative Hip Motion Testing Pain: Right Negative, Left Negative Focal Weakness: Present: None Focal Sensory Loss: Present: None Gait: Present: Normal Differential Diagnoses: Epidural Abcess Review of Systems - Review Of Systems Constitutional: Reports: No symptoms Eyes: Reports: No symptoms Ears, Nose, Mouth, Throat: Reports: No symptoms Respiratory: Reports: No symptoms Cardiac: Reports: No symptoms GI: Reports: No symptoms : Reports: No symptoms Musculoskeletal: Reports: Back pain, Muscle pain Skin: Reports: No symptoms Neurological: Reports: No symptoms Endocrine: Reports: No symptoms Hematologic/Lymphatic: Reports: No symptoms All Other Systems: Reviewed and Negative Past Medical History - Past Medical History Previously Healthy: No Endocrine: Reports: DM 2 Cardiovascular: Reports: CAD, Hypertension Respiratory: Reports: None Hematological: Reports: None Gastrointestinal: Reports: None Genitourinary: Reports: UTI Neuro/Psych: Reports: None Musculoskeletal: Reports: None Cancer: Reports: None Other Pertinent Past Medical History: Bowel obstrcution. - Surgical History General Surgical History: Reports: CABG, Other (Bowel resection with colosotomy. ) - Family History Family History: Reports: Unknown - Social History Smoking Status: Former smoker Hx Substance Use: No Alcohol Screening: None - Immunizations Tetanus Shot up to Date: Yes Physical Exam - Physical Exam Appearance: Well-appearing, Ill-appearing, No pain distress, Well-nourished Pain Distress: Moderate Eyes: JANETT, EOMI, Conjunctiva clear ENT: Ears normal, Nose normal, Oropharynx normal Neck: Supple Respiratory: Airway patent, Breath sounds clear, Breath sounds equal, Respirations nonlabored Cardiovascular: RRR, Pulses normal, No rub, No murmur GI/: Soft, Nontender, No masses, Bowel sounds normal, No Organomegaly Musculoskeletal: Limited ROM Skin: Warm, Dry, Normal color Neurological: Sensation intact, Motor intact, Reflexes intact, Cranial nerves intact, Alert, Oriented Psychiatric: Affect appropriate, Mood appropriate Interpretation - Radiology Interpretation Radiology Interpretation By: Radiologist Radiology Results: Positive Exam Interpreted: CT Scan - EKG Interpretation Time of EKG #1: 22:24 Rate: Normal Rhythm: Sinus Ectopy: None [place]: NL ST Segment: Normal Physician Notification - Case Discussed Physician Notified: dr hernadez---he asked for the patient to be transferred Time of Notification: 22:24 Critical Care Note - Critical Care Note Total Time (mins): 0 Course - Course Hematology/Chemistry: 02/17/18 20:46 02/17/18 20:46 Orders, Labs, Meds: Lab Review 02/17/18 02/17/18 02/17/18 20:31 20:46 20:46 WBC 22.79 H RBC 4.24 L Hgb 13.0 L Hct 38.0 L MCV 89.6 MCH 30.7 MCHC 34.2 RDW Coeff of Neha 13.6 Plt Count 353 Immature Gran % (Auto) 0.7 Neut % (Auto) 85.1 Lymph % (Auto) 5.3 L Henry % (Auto) 8.3 Eos % (Auto) 0.2 Baso % (Auto) 0.4 Immature Gran # (Auto) 0.2 Neut # (Auto) 19.4 H Lymph # (Auto) 1.2 Henry # (Auto) 1.9 Eos # (Auto) 0.0 Baso # (Auto) 0.1 ESR Sodium 131.9 L Potassium 3.77 Chloride 95.1 L Carbon Dioxide 25.9 Anion Gap 14.67 BUN 16.8 Creatinine 0.97 Estimated GFR (MDRD) 75.00 BUN/Creatinine Ratio 17.31 Glucose 139.4 H Lactic Acid Calcium 9.69 Total Bilirubin 0.55 AST 24.8 ALT 35.7 Alkaline Phosphatase 67.5 Total Creatine Kinase 59.1 Troponin I < 0.012 Total Protein 7.23 Albumin 4.07 Globulin 3.16 Albumin/Globulin Ratio 1.28 Amylase 55.9 Lipase 13.9 L Procalcitonin Urine Color Yellow Urine Clarity Cloudy Urine pH 6.0 Ur Specific [place] 1.025 Urine Protein 3+ Urine Glucose (UA) Negative Urine Ketones Negative Urine Blood 2+ Urine Nitrite Negative Urine Bilirubin Negative Urine Urobilinogen 0.2 Ur Leukocyte Esterase 1+ Urine Microscopic WBC Tntc Ur Squamous Epith Cells Not present Urine Bacteria 3+ 02/17/18 02/17/18 02/17/18 20:46 20:46 20:46 WBC RBC Hgb Hct MCV MCH MCHC RDW Coeff of Neha Plt Count Immature Gran % (Auto) Neut % (Auto) Lymph % (Auto) Henry % (Auto) Eos % (Auto) Baso % (Auto) Immature Gran # (Auto) Neut # (Auto) Lymph # (Auto) Henry # (Auto) Eos # (Auto) Baso # (Auto) ESR 20 H Sodium Potassium Chloride Carbon Dioxide Anion Gap BUN Creatinine Estimated GFR (MDRD) BUN/Creatinine Ratio Glucose Lactic Acid 2.55 H Calcium Total Bilirubin AST ALT Alkaline Phosphatase Total Creatine Kinase Troponin I Total Protein Albumin Globulin Albumin/Globulin Ratio Amylase Lipase Procalcitonin 0.19 Urine Color Urine Clarity Urine pH Ur Specific [place] Urine Protein Urine Glucose (UA) Urine Ketones Urine Blood Urine Nitrite Urine Bilirubin Urine Urobilinogen Ur Leukocyte Esterase Urine Microscopic WBC Ur Squamous Epith Cells Urine Bacteria Orders Category Date Time Status EKG-(ED ONLY) Stat CARDIO 02/17/18 20:19 Completed TRANSFER TO OUTSIDE FACILITY .TO [facility] 02/17/18 22:26 Active (MOOCHRISTELLE) WRITE TRANSFER/SBAR NOTE ONCE CARE 02/17/18 22:26 Active DISCHARGE ASSESSMENT ONCE DISCHARGE 02/17/18 22:26 Active WRITE DISCHARGE NOTE ONCE DISCHARGE 02/17/18 22:26 Active IV [ED IV/MEDIPORT/POWERPORT] .ONCE EMERGENCY 02/17/18 20:19 Active AMYLASE Stat LAB 02/17/18 20:46 Completed BLOOD CULTURE (ED ONLY) Stat LAB 02/17/18 20:46 Received CBC W/ AUTO DIFF Stat LAB 02/17/18 20:46 Completed COMPREHENSIVE METABOLIC PANEL Stat LAB 02/17/18 20:46 Completed CREATINE KINASE Stat LAB 02/17/18 20:46 Completed ESR Stat LAB 02/17/18 20:46 Completed LACTIC ACID Stat LAB 02/17/18 20:46 Completed LIPASE Stat LAB 02/17/18 20:46 Completed PROCALCITONIN Stat LAB 02/17/18 20:46 Completed TROPONIN I Stat LAB 02/17/18 20:46 Completed URINALYSIS C & S IF INDICATED Stat LAB 02/17/18 20:31 Completed URINE CULTURE Stat LAB 02/17/18 20:31 Received 0.9 % Sodium Chloride [Saline Flush] MEDS 02/17/18 20:19 Ordered 1 syr IVF PRN PRN Aztreonam [Azactam] MEDS 02/17/18 22:12 Discontinued 1 gm .ROUTE .STK-MED ONE Aztreonam [Azactam] 1 gm MEDS 02/17/18 22:00 Active 0.9 % Sodium Chloride [Sodium Chloride] [address] ABDOMEN/PELVIS WO CONTRAST Stat RADS 02/17/18 20:[address] CHEST W/O CONTRAST Stat RADS 02/17/18 20:[address] LUMBAR SPINE W/O CONTRAST Stat RADS 02/17/18 20:[address] THORACIC SPINE W/O CONTRAST Stat RADS 02/17/18 20:21 Completed Medications Generic Name Dose Route Start Last Admin Trade Name Freq PRN Reason Stop Dose Admin Aztreonam 1 gm/ Sodium 50 mls @ 75 mls/hr 02/17/18 22:00 02/17/18 22:19 Chloride IV 02/17/18 22:39 Not Given ONCE STA Sodium Chloride 1 syr 02/17/18 20:19 Saline Flush IVF PRN PRN To flush IV Vital Signs: Temp Pulse Resp BP Pulse Ox 02/17/18 20:11 100.5 F H 109 H 16 115/61 94 L Departure - Departure Time of Disposition: 22:24 Disposition: TSF SHORT-TRM HOSP Discharge Problem: Abscess or cellulitis of back UTI (urinary tract infection) Qualifiers: Urinary tract infection type: site unspecified Hematuria presence: without hematuria Qualified Code(s): N39.0 - Urinary tract infection, site not specified Condition: Fair Pt referred to PMD for follow-up: Yes IPMP verified?: No Allergies/Adverse Reactions: Allergies cephalexin monohydrate [From Keflex] Adverse Reaction (Verified 12/06/17 16:15) hydrocodone bitartrate [From Lortab] Adverse Reaction (Verified 12/06/17 16:15) latex Adverse Reaction (Verified 12/06/17 16:15) ranitidine HCl [From Zantac] Adverse Reaction (Verified 12/06/17 16:15) Sulfa (Sulfonamide Antibiotics) Adverse Reaction (Verified 12/06/17 16:15) vancomycin Adverse Reaction (Verified 12/06/17 16:15) Home Medications: Ambulatory Orders Aspirin [Aspirin Chewable] 81 mg PO DAILY 04/05/13 Metoprolol Tartrate [Lopressor] 25 mg PO BID 03/18/15 Losartan/Hydrochlorothiazide [Hyzaar 100-25 Tablet] 1 tab PO DAILY 05/19/15 Pantoprazole Sodium [Protonix] 40 mg PO BID #60 tablet. 03/29/16 Alprazolam 0.25 mg PO TID PRN 07/19/16 Docusate Sodium [Colace] 200 mg PO 1700 07/19/16 Metformin HCl [Glucophage] 500 mg PO TID 07/19/16 Oxycodone HCl/Acetaminophen [Percocet 10-325 mg Tablet] 1 each PO QID 08/24/16 Multivit-Min/FA/Lycopen/Lutein [Centrum Silver Tablet] 1 each PO 1200 01/26/17 Tamsulosin HCl [Flomax] 0.4 mg PO BEDTIME #30 cap.er.24h 01/28/17 Omeprazole [Prilosec] 20 mg PO QDAC 12/06/17 Sucralfate [Carafate] 1 gm PO QID 12/06/17 Amlodipine Besylate [Norvasc] 10 mg PO DAILY #30 tablet 12/08/17 Levofloxacin [Levaquin] 500 mg PO QDAC #7 tablet 12/08/17 Transfer Form Completed: Yes Disposition Discussed With: Patient, Family
[2018-02-17 22:41] VITALS: BP 144/62; TEMP 98.2
[2018-02-17] MEDS ORDERED: MORPHINE 2 MG/ML SYRINGE IVP STA (22:53)
[2018-02-17] MEDS ORDERED: DILAUDID 1 MG/ML SYRINGE IVP STA (23:05)
== END 2018-02-17 23:35 | disposition short-term general hospital (02) ==
LOC: ED 20:11
DX: N39.0 Urinary tract infection, site not specified (principal); M54.9 Dorsalgia, unspecified; E11.9 Type 2 diabetes mellitus without complications; I25.810 Atherosclerosis of coronary artery bypass graft(s) without angina pectoris; I10 Essential (primary) hypertension; Z79.899 Other long term (current) drug therapy; L02.212 Cutaneous abscess of back [any part, except buttock and flank]; R51 Headache
CPT/HCPCS: 36415; 80053; 81001; 82150; 82550; 83605; 83690; 84145; 84484; 85025; 85651; 87040; 87086; 87186; 93005; 93010; 96365; 96375; 99285

== ENCOUNTER 2018-03-29 11:00 | Outpatient (RCR) ==
--- NOTE | 2018-03-23 10:26 | RS.OPPTEV2 ---
Date of Note: 03/22/18 Visit #: 1 Number of visits approved by Insurance: NA Date of Evaluation: 03/22/18 Payer Source: MEDICARE Surgery Performed?: No Treatment Diagnosis: LE weakness, recent falls History of Condition/Mechanism of Injury:: Mr. Song reports progressive weakness and difficulty with balance. His reports he has fallen three times just in the past few weeks. He has had ongoing back pain since his back surgeries. He will be receiving an AFO in a few weeks for left foot drop. Prior Level of Function.....Patient was independent with: ADL's, Self Care, Caregiving, Ambulation/Mobility, Community Integration/Access Functional Limitations: Sleep, Self Care, ADL's, Reaching, Pushing, Pulling, Lifting, Carrying, Sitting, Standing, Bending, Squatting, Ambulation, Community Access/Integration Current Subjective/complaints:: Mr. Song reports back pain, left foot drop, and an unstable gait. States he usually walks with a straight cane inside and outside the home. Also uses a walker at times, but prefers the cane. States he has difficulty walking long distances due to weakness and back pain. He feels like he has fallen because his legs give out. Reports having difficulty with the left ankle since his back surgeries. His states that he has fallen three times in the last few weeks. He reports dizziness with moving his head too quick or with position changes. States he has not hit his head, just scraped his arms. States he falls forward. He has been using the walker a little more, since his falls. States he cannot walk, stand, or sit very long due to back pain. He takes Oxycodone on a regular schedule as prescribed. He also has a TENS unit which helps. States laying on his side with pressure against his back helps decrease his pain. They currently live in a home with 4 steps into the house at the front entrance and 7 steps in the back. The are moving to an apartment in two weeks, that has no steps. His states he is also having difficulty with swallowing and short term memory. *Precautions: LATEX AND ADHESIVES ALLERGY Medical History Medical History: Hypertension, Diabetes, Cancer Medical History Comments:: L2-5 Laminectomy 03/10/16. Has history of previous back surgeries in 2015. Colostomy Jun 2015, CABG 1994, Bilateral TKA: right 2011, left 2003. Surgical History Comments:: Pt has a colostomy bag from cancer removal back in June of 2014. Smoking Status: Former smoker Hx Home Medications: Oxycodone Patient's Goals: His goal is to gain strength and improved balance, and also get some relief of back pain. Pain Assessment - Pain Description Pain Location: low back Pain Description: Aching, Chronic Current Pain Intensity: 8/10 Worst Pain Intensity: 10/10 Functional Outcome Measure Oswestry LBP: 64 Tinetti: 14 (14/28=50% impairment) - G Codes & Severity Modifier G Codes & Modifier: Mobility current CK. Mobility goal CI Source of G Code score: Average score from Oswestry LBP pam and Tinetti Assessment (64+07=875/2=57) Observation - Observation Posture: Forward Head, Rounded Shoulders, Decreased Lumbar Lordosis, Posterior Pelvic Tilt Gait - Gait Pattern Gait Comments: Mr. Song ambulates with SBA,with a straight cane and flexed forward posture at the hips. He demonstrates a short stride length and narrow base of support. He clears the right foot consistently during swing phase, but not the left. He demonstrates minimal bilateral hip and knee flexion. Sit <> stand transfers are independent, but slow. He does not turn around completely before starting to sit in chair upon return from walking or when transfering from treatment table. Demonstrates a gait speed of .38 m/s over a distance of 50 feet. General Range of Motion: Patient unable to perform full hip flexion against gravity on either leg. Left ankle unable to perfrom full DF against gravity. Otherwise, LE AROM is WFL's. Muscle Strength: Trunk strength: lateral flexion 4-/5, rotation 3+/5. Right hip flexion 2+/5, extension and abduction 3/5, all else 3+/5, quads 4-/5, HS 4-/ 5, ankle 4/5. Left hip flexion 2+/5, all else 4-/5. Left quads 4-5, HS 3+/5. Ankle DF 2+/5, PF 4/5, iversion and eversion 3+/5. - ROM Comments: Deferred due to pain with all lumbar ROM. Palpation Comments:: Mr. Song demonstrates minimal to moderate muscle guarding along the lumbar paraspinals. Reports increased discomfort with central PA's along the lumbar spinous processes. Reports some tenderness over the SI joints bilaterally. Denies tenderness over the superior gluteal musculature. Sensation - Sensation Comments: Mr. Song reports sensation is equally intact to light touch upon assessment. States he has symptoms of neuropathy on the soles of his feet. He is able to feel tapping on the sole of each foot through his shoe. Balance - Sitting Balance Static Sitting Balance: Good Dynamic Sitting Balance: Good (-) - Standing Balance Static Standing Balance: Fair (+) Dynamic Standing Balance: Fair Additional Comments: Additional Comments: Patient unable to perform Heel to prescott coordination test due to weakness with hip flexion bilaterally. SLR in supine to 30-35 degrees. Interventions - Exercise/Activities/Manual Therapy Exercises/Activities: Blood pressure taken at rest in sittin/68. Upon immediate standing BP: 103/79 with reports of dizziness. Manual Therapy: Na HOME EXERCISE PROGRAM: NA - Charges Timed Code Treatment Minutes: 0 mins Total Treatment Time: 58 mins Procedures billed for this date of service:: EVAL medium EVALUATION COMPLEXITY LEVEL EVALUATION COMPLEXITY LEVEL: HISTORY: High (multiple back surgeries, Hx Colon CA , Diabetic, short term memory issues), EXAM OF BODY SYSTEMS: Medium (strength, ROM, balance, pain, sensation), CLINICAL PRESENTATION: Medium (evolving, progressive worsening of symptoms, more tests ordered), CLINICAL DECISION MAKING : Medium Assessment Assessment: Mr. Song presents to therapy with a diagnosis of weakness, chronic LBP, and falls. Mr. Song and his report several falls just in the last few weeks. He demonstrates weakness throughout the trunk and LEs, worse in the hips and left ankle DF. He demonstrates demonstrates to be at a High Risk for falls per Tinetti Assessment. His gait speed puts him in a category of a household ambulator. Ambulation is not only limited by weakness and impaired balance, but also back pain. He also demonstrates a 40 point drop in systolic blood pressure upon immediate standing, which will affect his ability to ambulate safety. He demonstrates good potential to gain improved strength and balance to decrease his risk for falls. Patient Education: Education of diagnosis, Home Exercise Program, Home Safety, Activity Modification, Education of Plan of Care Rehab Potential: Good Short Term Goals Goal #1: Pt independent and compliant with basic HEP. Goal to be met by: 04/06/18 Goal #2: Bilateral SLR to 40-45 degrees. Goal to be met by: 04/06/18 Goal #3: Bilateral hip flexion strength 4-/5. Goal to be met by: 04/06/18 Goal #4: Bilateral knee strength 4/5. Goal to be met by: 04/06/18 Staking Engineer Goals Goal #1: Pt knows HEP and understands the need to continue ex's following D/C. Goal to be met by: 05/02/18 Goal #2: Score on Tinetti Assessment improved 19% or less impairment. Goal to be met by: 05/02/18 Goal #3: Gait speed improved to .8 m/s to community ambulation. Goal to be met by: 05/02/18 Plan - Treatment to be Provided Procedures: Therapeutic Exercises, Therapeutic Activity, Gait Training, Neuromuscular Rehab, Patient Education Modalities: Electrical Stimulation, Cryotherapy, Hot Packs - Treatment Plan Frequency: 3 X week Duration: 6 weeks Dates of Staking Engineer Goals: 05/02/18 Expiration date of current Insurance Approval:: NA - Treatment Code (1) Gait abnormality Code(s): R26.9 - UNSPECIFIED ABNORMALITIES OF GAIT AND MOBILITY Comments: R26.9 (2) Recurrent falls Code(s): R29.6 - REPEATED FALLS Comments: R29.6 (3) Weakness Code(s): R53.1 - WEAKNESS Comments: R53.1 (4) Chronic low back pain Code(s): M54.5 - LOW BACK PAIN Qualifiers: Back pain laterality: unspecified Sciatica presence: unspecified whether sciatica present Qualified Code(s): M54.5 - Low back pain; G89.29 - Other chronic pain
--- NOTE | 2018-03-24 16:28 | RS.OPPTDN ---
Subjective Date of Note: 03/24/18 Visit #: 2 Number of visits approved by Insurance: na Date of Evaluation: 03/22/18 Payer Source: MEDICARE Treatment Diagnosis: LE weakness, recent falls Current Subjective/complaints:: Patient reports the back pain and leg weakness limits him for being up on his feet for extended time periods. *Precautions: LATEX AND ADHESIVES ALLERGY Pain Assessment - Pain Description Pain Location: lumbar and R hip/LE Pain Description: Radiating, Dull, Aching Current Pain Intensity: 7/10 - Treatment Modality: Electrical Stim Unattended Parameters/Method Applied: 20 mins. high volt to lumbar,channel 1 and 2 @ 135 pv. Patient Position: Supine - Heat/Cryotherapy Treatment: Hot Pack (concurrent with e-stim) Interventions - Exercise/Activities/Manual Therapy Exercises/Activities: Supine and seated exercises ,3/10 each of ankle pumps,SAQ' s,heelslides,hip abd/adduction,LAQ's. Total minutes of Exercise: 20 Manual Therapy: Na Total minutes of Manual Therapy: 0 HOME EXERCISE PROGRAM: NA - Charges Timed Code Treatment Minutes: 40 Total Treatment Time: 50 Procedures billed for this date of service:: hp,e-stim ,ex 1 Assessment: Patient requires frequent rest periods with LE exercises due to fatigue ,but they do not elevate the back pain.He reports less intense back pain when supine ,after the modalities.He ambulates safely with cane for short distances,has occasional trunk sway as he fatigues. Patient Education: Education of diagnosis, Body/Joint mechanics, Home Exercise Program, Home Safety, Activity Modification, Education of Plan of Care Short Term Goals Goal #1: Pt independent and compliant with basic HEP. Goal to be met by: 04/06/18 Goal #2: Bilateral SLR to 40-45 degrees. Goal to be met by: 04/06/18 Goal #3: Bilateral hip flexion strength 4-/5. Goal to be met by: 04/06/18 Goal #4: Bilateral knee strength 4/5. Goal to be met by: 04/06/18 Irrigation System Operator Goals Goal #1: Pt knows HEP and understands the need to continue ex's following D/C. Goal to be met by: 05/02/18 Goal #2: Score on Tinetti Assessment improved 19% or less impairment. Goal to be met by: 05/02/18 Goal #3: Gait speed improved to .8 m/s to community ambulation. Goal to be met by: 05/02/18 Goal #4: Pt able to perform all ADL's and recreational activities without difficulty Goal to be met by: 09/17/16 Progress towards goal: Not Met Plan Dates of Half-Way Goals: 05/02/18 Expiration date of current Insurance Approval:: NA PLAN: Cont. PT to strengthen core /LE's ,reduce /eliminate back pain.
--- NOTE | 2018-03-27 16:09 | RS.OPPTDN ---
Subjective Date of Note: 03/27/18 Visit #: 3 Number of visits approved by Insurance: NA Date of Evaluation: 03/22/18 Payer Source: MEDICARE Treatment Diagnosis: LE weakness, recent falls Current Subjective/complaints:: No c/o. *Precautions: LATEX AND ADHESIVES ALLERGY Pain Assessment - Pain Description Pain Location: back Pain Description: Dull, Aching, Chronic Current Pain Intensity: not rated - Heat/Cryotherapy Treatment: Hot Pack (20 mins. prior to exercises) Interventions - Exercise/Activities/Manual Therapy Exercises/Activities: Supine exercises of passive stretches ,SKTC,90/90 hamstring stretches,resisted hip flexion ,isometric hip abd/ adduction.Progressed to bilateral leg press exercises of 3/15 @ 90 #. Total minutes of Exercise: 30 Manual Therapy: Na Total minutes of Manual Therapy: 0 HOME EXERCISE PROGRAM: NA - Charges Timed Code Treatment Minutes: 30 Total Treatment Time: 50 Procedures billed for this date of service:: hp,ex 2 Assessment: Patient has moderate bilateral hamstring tightness ,but the stretches do not elicit back pain .He has report of stretch discomfort only with SKTC.He has good control of concentric and eccentric motions on the leg press today. Patient Education: Body/Joint mechanics, Education of Plan of Care Short Term Goals Goal #1: Pt independent and compliant with basic HEP. Goal to be met by: 04/06/18 Progress towards Goal:: Progressing Goal #2: Bilateral SLR to 40-45 degrees. Goal to be met by: 04/06/18 Goal #3: Bilateral hip flexion strength 4-/5. Goal to be met by: 04/06/18 Progress towards Goal:: Progressing Goal #4: Bilateral knee strength 4/5. Goal to be met by: 04/06/18 Progress towards Goal:: Progressing Skilled Nursing Goals Goal #1: Pt knows HEP and understands the need to continue ex's following D/C. Goal to be met by: 05/02/18 Goal #2: Score on Tinetti Assessment improved 19% or less impairment. Goal to be met by: 05/02/18 Goal #3: Gait speed improved to .8 m/s to community ambulation. 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 PT to increase trunk /LE strength ,reduce back pain.
--- NOTE | 2018-03-29 13:23 | RS.OPPTDN ---
Subjective Date of Note: 03/29/18 Visit #: 4 Number of visits approved by Insurance: NA Date of Evaluation: 03/22/18 Payer Source: MEDICARE Treatment Diagnosis: LE weakness, recent falls Current Subjective/complaints:: Patient reports muscle soreness today,no increased pain after last session . *Precautions: LATEX AND ADHESIVES ALLERGY Pain Assessment - Pain Description Pain Location: lumbar /LE's Pain Description: muscle soreness Current Pain Intensity: 0 at rest - Heat/Cryotherapy Treatment: Hot Pack (20 mis. prior to exercises) Interventions - Exercise/Activities/Manual Therapy Exercises/Activities: 30 mins. total,beginning with red(latex free) theraband hip abd /adduction ,3/10 for both LE's,then 2/15 and 1 set of 9 reps. , both legs on leg press @ 90 #.Patient requires supervision for sit to stand after leg press exercises ,but is independent with transfers otherwise. Total minutes of Exercise: 30 Manual Therapy: Na Total minutes of Manual Therapy: 0 - Charges Timed Code Treatment Minutes: 30 Total Treatment Time: 50 Procedures billed for this date of service:: hp,ex 2 Assessment: Patient has improved control of eccentric motions today.He tolerates the leg press with reprt of fatigue ,but no back pain.He does stop the third set of leg presses due to LE pain on the R .He has steady gait exiting the clinic today.He continues to be motivated to improve,is attentive during the PT session. Patient Education: Education of diagnosis, Body/Joint mechanics, Home Exercise Program, Home Safety, Activity Modification, Education of Plan of Care Short Term Goals Goal #1: Pt independent and compliant with basic HEP. Goal to be met by: 04/06/18 Progress towards Goal:: Progressing Comments:: Patient has knowledge of LE exercises due to having bilateral knee surg. Goal #2: Bilateral SLR to 40-45 degrees. Goal to be met by: 04/06/18 Progress towards Goal:: Progressing Goal #3: Bilateral hip flexion strength 4-/5. Goal to be met by: 04/06/18 Progress towards Goal:: Progressing Goal #4: Bilateral knee strength 4/5. Goal to be met by: 04/06/18 Progress towards Goal:: Progressing Braille Operator Goals Goal #1: Pt knows HEP and understands the need to continue ex's following D/C. Goal to be met by: 05/02/18 Comments: Will give copies of additional exercises at next session if feasible Goal #2: Score on Tinetti Assessment improved 19% or less impairment. Goal to be met by: 05/02/18 Goal #3: Gait speed improved to .8 m/s to community ambulation. Goal to be met by: 05/02/18 Goal #4: Pt able to perform all ADL's and recreational activities without difficulty Goal to be met by: 09/17/16 Plan Dates of Retirement Goals: 05/02/18 Expiration date of current Insurance Approval:: 05/02/18 PLAN: Continue PT to strengthen trunk /LE's ,reduce back pain for better tolerance to standing activities.
== END 2018-03-29 23:59 ==
PROVIDERS: ATTEND Nurse Practitioner Family
DX: R53.1 Weakness (principal); M54.5 Low back pain; G89.29 Other chronic pain; W19.XXXD Unspecified fall, subsequent encounter

== ENCOUNTER 2018-04-04 07:20 | Day surgery (SDC) | payer OTHER ==
[2018-04-04] MEDS ORDERED: VERSED ONE (08:35)
[2018-04-04] MEDS ORDERED: LIDOCAINE HCL 2% LUER-JET ONE (08:35)
[2018-04-04] MEDS ORDERED: DIPRIVAN 20 ML VIAL IVP ONE (08:35)
--- NOTE | 2018-04-05 11:23 | OP ---
INDICATIONS FOR PROCEDURE: 78-year-old gentleman presents for endoscopy. He has been having some nonspecific abdominal discomfort chronically. He is scheduled for endoscopy investigation. MEDICATIONS: SEE ANESTHESIA NOTES. PROCEDURE: ENDOSCOPY, JENARO BIOPSY REPORTS. REPORT: The risks, benefits, alternatives and limitations were discussed in detail with the patient. Informed consent was obtained. After adequate sedation was achieved, the video endoscope was introduced in the posterior pharynx and esophagus under direct vision and I easily advanced down to the second portion of the duodenum. I then slowly withdrew. The duodenal mucosa appeared unremarkable as did the duodenal bulb. There was a diverticulum in the second portion of the duodenum. The antrum and body were relatively unremarkable. Two biopsies from the antrum and one from the body obtained for H. Pylori test. The scope was retroflexed to look at the cardia and fundus which was unremarkable. The scope was anteflexed and withdrawn back through the esophagus which was unremarkable. The patient tolerated the procedure well with stable vital signs and pulse oximetry throughout. IMPRESSION: 1. DUODENAL DIVERTICULUM 2. OTHERWISE UNREMARKABLE EXAM 3. NOTHING TO ACCOUNT FOR HIS CHRONIC ABDOMINAL DISCOMFORT RECOMMENDATIONS: 1. Await H. Pylori; if positive, will initiate treatment. 2. Small meals throughout the day. 3. Will see him back in the office as needed. CC: DR. LISSY SANTA
[2018-04-06 12:47] VITALS: BP 128/77
== END 2018-04-04 10:00 | disposition home or self-care (01) ==
LOC: SURG 07:20
PROVIDERS: ATTEND Internal Medicine Gastroenterology
DX: R10.84 Generalized abdominal pain (principal); K57.10 Diverticulosis of small intestine without perforation or abscess without bleeding
CPT/HCPCS: 87339